=== PATIENT | male | born 1945 | race Caucasian/White ===

== ENCOUNTER 2022-06-24 11:35 | Observation (INO) | payer OTHER ==
[~2022-06-24] VITALS: Ht 170.2 cm; Wt 97.1 kg
[~2022-06-24 11:35] MED LIST: ACEB200; ALLO100; ALLO300 PO; AMIT25 PO; AMITRIPTYLLINE; ASPI81CH PO; ATOR20 PO; BP MED; CLOP75 PO; CYCL10 PO; DILT240 PO; ESCI10 PO; FISH OIL + D31 EACH PO; FISH1000 PO; FURO40 PO; GINKGO BILOBA120 MG PO; GINKO BILOBA; HCTZ/LISINOPRIL; Hair, Skin & N1 EACH PO; IBUP400 PO; ISOD40ER PO; Isosorbide Mono60 MG PO; LISHYD2012 PO; METF500 PO; METF500C PO; METO50 PO; METO50ER PO; MIRT15 PO; MULVITMINE PO; NAPR220 PO; PANT20; PANT40 PO; POTA20PAC PO; Prinivil10 MG PO; ROSU10TA PO; SERT25 PO; TAMS.4ER PO; THERA-D2000 UNIT PO; TRAM50 PO; Vitamin B Comple1 EA PO; ZESTORETIC 20-1 EAC1 PO; ZESTRIL40 M1 PO
[2022-06-24] MEDS ORDERED: OZEMPIC0.25 MG/0. SQ (12:25)
[2022-06-24] MEDS ORDERED: NITROGLYCERIN0.4 M1 SL (12:25)
--- NOTE | 2022-06-25 04:05 | NUR ---
PATIENT ARRIVED FROM ED AROUND 2100. ADMITTED WITH TIA AND PERSISTENT HEADACHES. PATIENT IS UNABLE TO HAVE MRI PERFORMED DUE TO IMPLANTED NEUROSTIMULATOR. CT SCAN SHOWED OCCLUSION OF RIGHT INTRACRANIAL ARTERY SEGMENT. SUBSEQUENT CT SCAN SCHEDULED FOR 2 PM THIS AFTERNOON. PATIENT ASYMPTOMATIC UPON ARRIVING IN ROOM AND HAS REMAINED ASYMPTOMATIC THROUGHOUT SHIFT. INDEPENDENT IN ROOM. AOX4. CALLS APPROPRIATELY. IV RIGHT AC SALINE LOCKED. ON ROOM AIR. TELEMETRY IN PLACE. PATIENT HAS NO COMPLAINTS AND HAS SLEPT WELL THROUGH MOST OF SHIFT. CALL LIGHT LEFT WITHIN REACH.
[2022-06-25 07:48] LABS: CHOL/HDL RATIO 2.7; Cholesterol 130 mg/dL (50-200); HDL Cholesterol 48 mg/dL (>39); LDL/HDL RATIO 1.1; Low Density Lipoprotein Chol 53 mg/dL (0-110); Triglycerides 145 mg/dL (30-160); Very Low Density Lipoprot Chol 29 mg/dL (6-32)
--- NOTE | 2022-06-25 11:09 | NUR ---
Echocardiogram completed.
--- NOTE | 2022-06-25 15:45 | NUR ---
THIS RICE DRYER MECHANIC AGREES WITH DIONISIO VANCE'S NOTES AND ASSESSMENTS.
--- NOTE | 2022-06-25 15:48 | NUR ---
PT AOX4 AND INDEPENDENT DENIED ANY KIND OF PAIN. PT DISCHARGED AT 1436 WITH ALL PAPERWORK REVIEWED AND EDUCATIONAL MATERIAL SENT WITH PT. NO DISTRESS NOTED AND ALL PERSONAL BELONGINGS COLLECTED AND WITH PT. PT ESCORTED OUT VIA WHEELCHAIR TO N ENTRANCE. NO DISTRESS NOTED.
== END 2022-06-25 14:27 | disposition home or self-care (01) ==
LOC: ER 11:35 → MEDS 11:36 → ER 20:54 → MEDS 06-25 14:27
PROVIDERS: ADMIT Internal Medicine
DX: G45.9 Transient cerebral ischemic attack, unspecified (principal); I10 Essential (primary) hypertension; E11.9 Type 2 diabetes mellitus without complications; I25.10 Atherosclerotic heart disease of native coronary artery without angina pectoris; Z66 Do not resuscitate; I66.22 Occlusion and stenosis of left posterior cerebral artery; Z88.0 Allergy status to penicillin; Z88.8 Allergy status to other drugs, medicaments and biological substances; Z87.891 Personal history of nicotine dependence
CPT/HCPCS: 36415; 70496; 80061; 82947; 85651; 86141; 93306; 96365-59; 96366-59; 96375-59; 99285-25; A9270; G0378; J1200; J1885; J2765; J3475; Q9967

== ENCOUNTER 2022-10-28 13:07 | Observation (INO) | payer OTHER ==
[~2022-10-28] VITALS: Ht 170.2 cm; Wt 96.3 kg
[~2022-10-28 13:07] MED LIST changes: +NITROGLYCERIN0.4 M1 SL; +OZEMPIC0.25 MG/0. SQ; +POTA10T PO; -POTA20PAC PO
[2022-10-28 13:40] LABS: BASOPHILS ABSOLUTE AUTO 0.02 K/mm3 (0.00-0.23); BASOPHILS PERCENT AUTO 0 % (0-2); EOSINOPHILS PERCENT AUTO 0 % (0-6); Hematocrit 43.1 % (37.0-53.0); Hemoglobin 15.2 g/dL (13.5-17.5); IMMATURE GRAN ABSOLUTE AUTO 0.04 K/mm3 (0.00-0.10); IMMATURE GRAN PERCENT AUTO 0 % (0-1); LYMPHOCYTES ABSOLUTE AUTO 2.17 K/mm3 (0.84-5.20); LYMPHOCYTES PERCENT AUTO 24 % (21-46); MONOCYTES ABSOLUTE AUTO 0.88 K/mm3 (0.16-1.47); MONOCYTES PERCENT AUTO 10 % (4-13); Mean Corpuscular HGB 34.5 pg (26.0-34.0); Mean Corpuscular HGB Conc 35.3 g/dL (31.5-36.5); Mean Corpuscular Volume 98 fL (80-100); Mean Platelet Volume 9.9 fL (9.1-12.4); NEUTROPHILS ABSOLUTE AUTO 6.04 K/mm3 (1.96-9.15); NEUTROPHILS PERCENT AUTO 66 % (41-73); Platelet Count 210 K/mm3 (150-400); RDW Coefficient Variation 13.4 % (11.7-14.2); RDW Standard Deviation 47.7 fL (35.1-46.3); Red Blood Cell Count 4.41 M/mm3 (4.30-5.90); White Blood Cell Count 9.15 K/mm3 (4.00-11.30)
[2022-10-28 13:59] LABS: Albumin, Blood 3.7 g/dL (3.4-5.0); Albumin/Globulin Ratio 1.2 (0.8-1.8); Bilirubin, Total 0.5 mg/dL (0.1-1.0); Bun/Creatinine Ratio 25.7 (12.0-20.0); Creatinine, Blood 1.05 mg/dL (0.60-1.20); Potassium, Blood 5.4 mmol/L (3.5-5.5); Total Protein, Blood 6.7 g/dL (6.4-8.2)
[2022-10-28] MEDS ORDERED: METF500 PO (20:18)
[2022-10-28 21:13] VITALS: BP 185/73
--- NOTE | 2022-10-28 22:48 | NUR ---
PATIENT IS A NEW ADMIT FROM THE ED. AXOX 4 AND SELF TRANSFER FROM [facility] TO BED. USES A CANE AT HOME AND BROUGHT HIS IN. DENIES CHEST PAIN, SOB, AND N/V. ON ROOM AIR. TELEMETRY PLACED AND TECH REPORTS NSR 75. REPORTS HE LIVES BY HIMSELF. ORIENTED TO ROOM AND CALL LIGHT SYSTEM. WANTED TO WATCH TV AFTER ASSESSMENT. CALL LIGHT IN REACH. TM.
--- NOTE | 2022-10-29 04:29 | NUR ---
SHIFT SUMMARY PATIENT HAD NO ACUTE CHANGES. AXOX 4 AND ONE ASSIST TO BR USING HIS CANE. DENIES CHEST PAIN, SOB, AND N/V. PIV REMAINS INTACT. TELE MONITOR NSR 75. HYPERTENSIVE ON ADMIT BUT NOT IN ED. POSSIBLE STRESS TEST TODAY AND NPO FOUR HOUR PRIOR TO PROCEDURE. TROPONINS WNL. REPORTS LIVES BY HIMSELF. COOPERATIVE WITH CARE. CALL LIGHT IN REACH. BED IN LOWEST POSITION. WILL CONTINUE TO MONITOR UNTIL DAY SHIFT NURSE ASSUMES CARE.
[2022-10-29 04:52] VITALS: BP 150/78
[2022-10-29 07:17] VITALS: BP 144/64
[2022-10-29 15:47] VITALS: BP 129/63
--- NOTE | 2022-10-29 15:51 | NUR ---
SHIFT SUMMARY: PATIENT A&OX4. CALM, PLEASANT AND COOPERATIVE c CARE. USES CALL LIGHT APPROPRIATELY AND ABLE TO MAKE NEEDS KNOWN. PATIENT DENIES CP/PRESSURE, N/V AND SOB. ON TELE, SR HR 65 BPM c 1ST DEGREE BBB AND PAC'S PER RN INFUSION, DELMAR BERUMEN. PATIENT ON ADA DIET c BS ACHS. BS RANGES 123-128. PATIENT IS CONTINENCE OF URINE AND STOOL. AMBULATES TO BATHROOM INDEPENDENTLY USING CANE. PATIENT HAS BEEN AMBULATING IN HALLWAYS BACK AND FORTH T/O SHIFT. DENIES GENERALIZE PAIN. PATIENT HAD HIS 1ST PART OF STRESS TEST DONE TODAY. 2ND PART OF STRESS TEST SCHEDULED TOMORROW. NO CAFFIENE AFTER DINNER AND NPO AT [place]. ECHO WAS CANCELLED TODAY BY DR. PETERSON. VITAL SIGNS REVIEWED. PIV TO LAC SALINE LOCKED. CALL LIGHT IN REACH.
[2022-10-29 19:21] VITALS: BP 181/88
[2022-10-29 20:27] VITALS: BP 177/92
[2022-10-30 04:18] VITALS: BP 155/70
[2022-10-30 07:31] VITALS: BP 165/58
[2022-10-30 15:34] VITALS: BP 142/67
--- NOTE | 2022-10-30 17:42 | NUR ---
SHIFT SUMMARY: NO NEW ACUTE CHANGES IN PATIENT CONDITION THIS SHIFT. PATIENT A&OX4. CALM, PLEASANT AND COOPERATIVE c CARE. USES CALL LIGHT APPROPRIATELY AND ABLE TO MAKE NEEDS KNOWN. PATIENT HAD HIS 2ND PART OF STRESS TEST DONE TODAY. SASH ASSEMBLER SAW PATIENT FOR CONSULT TODAY. PLAN TO HAVE PATIENT NPO AT [place] FOR POSSIBLE ANGIOGRAM TOMORROW 10/31/21. PATIENT DENIES CP/PRESSURE, N/V AND SOB. ON TELE, SB HR IN THE HIGH 50'S BPM c 1ST DEGREE HB AND BBB, PER CAFETERIA COUNTER ATTENDANT DELMAR BERUMEN. PATIENT RECIEVED SCHEDULED MEDS PER EMAR. BS RANGES 108-134 THIS SHIFT. VITAL SIGNS REVIEWED. CALL LIGHT IN REACH.
[2022-10-30 19:20] VITALS: BP 151/77
[2022-10-31] VITALS (7 sets, daily range): BP systolic 117–189; BP diastolic 68–80
--- NOTE | 2022-10-31 03:30 | NUR ---
SHIFT SUMMARY NOC PT A/O X 4. PLEASANT AND COOPERATIVE WITH CARE. PT HAD GUITAR TEACHER CONSULT YESTERDAY AND IS NPO AFTER MIDNIGHT FOR POSSIBLE ANGIOGRAM FOR 10/31/22. PT IS ON TELE RUNNING SINUS RHYTHM HR 72 BPM. PT IS CURRENTLY RESTING WITH BED IN LOWEST POSITION, AND CALL LIGHT WITHIN REACH.
--- NOTE | 2022-10-31 07:56 | NUR ---
NOTES: CALLED DR. PETERSON TO CLARIFY PATIENT SCHEDULED MEDS LOVENOX AND PLAVIX IF THIS RN CAN HOLD SINCE PATIENT POSSIBLE TO HAVE ANGIOGRAM TODAY. RECEIVED ORDER FROM DR. PETERSON TO GIVE PLAVIX AND HOLD LOVENOX.
--- NOTE | 2022-10-31 09:22 | NUR ---
PATIENT REPORTS SLIGHT PRESSURE TO CHEST AND SOB WHEN HE FIRST WOKE UP THIS MORNING AND PER PATIENT WENT AWAY. PATIENT DENIES CP/PRESSURE, N/V AND SOB AT THIS TIME. PATIENT SITTING UP ON THE EOB COMFORTABLY. PATIENT DAUGHTER AT BEDSIDE REPORTS CONCERNED AND SHOWS FRUSTRATIONS REGARDING THE ANGIOGRAM. PER DAUGHTER THEY WOULD LIKE TO KNOW IF IT IS GOING TO HAPPENED TODAY. THIS RN REASSURED DAUGHTER AND PATIENT TO LET THEM KNOW SOON RN FIND OUT OF ANYTHING. DAUGHTER AND PATIENT STATED UNDERSTANDING. THIS RN CALLED DR. PETERSON REGARDING THIS ISSUES. PER DR. PETERSON HE DON'T KNOW THE SCHEDULED AND INFORMED THIS RN TO CALLED HEART CENTER. THIS RN SPOKE c ATHLETIC SHOE DESIGNER, ANA PINTO REGARDING FAMILY'S CONCERNED AND FRUSTARTIONS. PER ANA SHE WILL CALL THE HEART CENTER AND COORDINATE c NURSING MANAGER STUDY ISHAN JOHN REGARDING THIS ISSUE.
--- NOTE | 2022-10-31 11:15 | NUR ---
NOTE: DR. GOMEZ CARDILOGY IN PATIENT ROOM AT THIS TIME TALKING TO PATIENT AND FAMILY MEMBER REGARDING PLAN FOR ANGIOGRAM PROCEDURE.
--- NOTE | 2022-10-31 17:29 | NUR ---
SHIFT SUMMARY: PATIENT A&OX4. CALM, PLEASANT AND COOPEARTIVE c CARE. USES CALL LIGHT APPROPRIATELY AND ABLE TO MAKE NEEDS KNOWN. AT AROUND 1617 PATIENT REPORTS "CHEST PRESSURE AND NOT PAIN". VITAL SIGNS TAKEN; RA 175/80 c HR OF 53 BPM, LA 189/78 c HR OF 55 BPM. THIS RN CALLED OPEN HEARTH FURNACE OPERATOR HELPER TO INQUIRE IF THEIR IS ANY CHANGES c PATIENT RHYTHM. PER OPEN HEARTH FURNACE OPERATOR HELPER KLARISSA, NO CHANGES IT'S BEEN SR HR RANGES 50'S-60'S c BBB AND PAC THIS SHIFT. CALLED DR. PETERSON TO REPORT PATIENT ISSUE. RECEIVED ORDER FROM DR. PETERSON TO GIVE NITRO PASTE Q4 FOR CP. PATIENT IS RESTING IN BED T/O SHIFT. IV TO LAC INFUSING NS 125 MLS/HR. PER CARDIOLOGY ORDER TO HAVE PATIENT NPO AT 0300 11/01/22 EXCEPT MEDS AND ICE CHIPS FOR POSSIBLE ANGIOGRAM TOMORRROW. CALL LIGHT IN REACH.
--- NOTE | 2022-10-31 18:43 | NUR ---
NOTES: PATIENT REPEAT VITAL SIGNS AFTER NITRO PASTE GIVEN. BP 159/68 c HR OF 55 BPM. PATIENT REPORTS FEELING BETTER. WILL CONTINUE TO MONITOR PATIENT. CALL LIGHT IN REACH.
[2022-11-01] VITALS (12 sets, daily range): BP systolic 96–151; BP diastolic 57–110
--- NOTE | 2022-11-01 03:29 | NUR ---
SHIFT SUMMARY NOC PT A/O X 4. PLEASANT AND COOPERATIVE WITH CARE. PT HAD NO C/O CP/DISCOMFORT DURING SHIFT. ACCESS DATABASE DEVELOPER DR. GOMEZ CONSULTED WITH PT ABOUT ANGIOGRAM PROCEDURE @ 0700 ON 11/01/22. PT AGREED TO LIFESAVING MEASURES BEING PERFORMED DURING PROCEDURE, BUT STILL REMAINS DNR OTHERWISE. PT IS NPO @ 0000 AND HAS NS INFUSING @ 125 MLS/HR. SECOND IV ACCESS SITE WAS ESTABLISHED IN R WRIST BY CLOCK REPAIR TECHNICIAN WITH ULTRASOUND. IV ACCESS IN LAC STILL PATENT AND FLUSHES BUT PT WOULD NOT KEEP ARM STRAIGHT FOR INFUSION AND DISTAL OCCLUSION ERROR PERSISTED, SO SECONDARY SITE WAS ESTABLISHED. PT NOTIFED DAUGHTER OF TIME OF PROCEDURE IN MORNING. PT ON TELE RUNNIN NSR @ 73 BPM. PT IS CURRENTLY RESTING WITH BED IN LOWEST POSITION, AND CALL LIGHT WITHIN REACH.
[2022-11-01 05:06] LABS: BASOPHILS ABSOLUTE AUTO 0.02 K/mm3 (0.00-0.23); BASOPHILS PERCENT AUTO 0 % (0-2); EOSINOPHILS ABSOLUTE AUTO 0.06 K/mm3 (0.00-0.68); EOSINOPHILS PERCENT AUTO 1 % (0-6); Hematocrit 42.8 % (37.0-53.0); IMMATURE GRAN ABSOLUTE AUTO 0.03 K/mm3 (0.00-0.10); IMMATURE GRAN PERCENT AUTO 0 % (0-1); LYMPHOCYTES ABSOLUTE AUTO 2.13 K/mm3 (0.84-5.20); LYMPHOCYTES PERCENT AUTO 28 % (21-46); MONOCYTES ABSOLUTE AUTO 0.95 K/mm3 (0.16-1.47); MONOCYTES PERCENT AUTO 13 % (4-13); Mean Corpuscular Volume 97 fL (80-100); Mean Platelet Volume 9.6 fL (9.1-12.4); NEUTROPHILS ABSOLUTE AUTO 4.41 K/mm3 (1.96-9.15); NEUTROPHILS PERCENT AUTO 58 % (41-73); Platelet Count 143 K/mm3 (150-400); RDW Coefficient Variation 13.1 % (11.7-14.2); RDW Standard Deviation 46.2 fL (35.1-46.3); Red Blood Cell Count 4.41 M/mm3 (4.30-5.90)
[2022-11-01 05:27] LABS: Bun/Creatinine Ratio 23.4 (12.0-20.0); Calcium, Blood 8.4 mg/dL (8.5-10.1); Creatinine, Blood 0.9 mg/dL (0.60-1.20)
--- NOTE | 2022-11-01 09:30 | NUR ---
ARRIVAL TO PCU 05- Patient came from 343 to PCU 05 post angio. Patient is awake alert and oriented x4. He denies pain at this time, he has nitro paste to his left chest from last HS, this is removed at this time. HRR. LS CTA, Biox high 90s on RA. BT+. PPP. Patient has right groin site with TEG CHG, scant oozing present, per Manjit RN they attempted to access the right groin but there was too much plaque thus they had to access the left wrist. Patient has left radial site with TR Band in place 14cc of air in the band, fingers dusky cap refill is 4 seconds. Pt denies N/T, pulse is strong, pleth good. Daughters at bedside. VSS, call light in reach. Patient CBG 119, breakfast given. Patient denies other needs at this time.
--- NOTE | 2022-11-01 11:35 | NUR ---
Update: Patients HOB now up to 60 degrees, TR band almost fully deflated, site has been great with no oozing, it is soft and non-tender. Right groin site with a small amount of oozing, soft and non-tender. VSS. AM meds given.
--- NOTE | 2022-11-01 16:30 | NUR ---
UPDATE: Dr. Wooten came by to see the patient, he would like to send the patient home. Discharge instructions are complete. Dr. De Santiago came by to see the patient, his recommendation is for the patient to stay the night and complete the CTA in the am and then make a plan for treatment. Daughter and patient at the bedside, updated on cardiology recommendations. Patient is agreeable to stay. VSS. He denies other needs at this time. Call light in reach.
--- NOTE | 2022-11-01 17:41 | NUR ---
Summary: Patient arrived down from [facility] from the heart [facility] to PCU 05. He had an angiogram performed with no interventions. He has been alert and oriented x4. He has not had any C/O pain for my shift. HRR, SR with a BBB in the 50s-60s. LS CTA, Biox has been high 90s on RA. BT+. He has cath sites in his right groin, which was a needle stick only-this has a dime size piece of oozing but has been soft and non-tender. Left radial site initially had a TR band with 14 cc air,recovered nicely, no oozing or bruising noted. Site is soft and non-tender. VSS. PPP. Plan is for the patient to have chest CTA in the AM and then establish plan with cardiology.
--- NOTE | 2022-11-01 22:03 | NUR ---
ASSUMPTION OF CARE THIS RN ASSUMED CARE OF PT AT 1900, REPORT FROM ENRIQUETA VANCE. PT AWAKE IN ROOM, PLEASANT UPON INTERACTION. PT A&O X4. COOPERATIVE WITH CARE. VSS. LUNGS SOUNDS CLEAR. PT DENIES CP OR PRESSURE, REPORTS MILD SOB WITH EXERTION "BUT IS NOT NEW". R GROIN SITE WNL, NO OOZING, EXCEPT SMALL, DIME SIZED OOZE THAT IS UNCHANGED PER DAYSHIFT. NO HEMATOMA, BRUISING NOTED AROUND SITE. PT DENIES PAIN. DRESSING INTACT. L RADIAL SITE WNL; NO OOZING, HEMATOMA, DISCOLORATION. PT DENIES NUMBNESS, TINGLING OR PAIN IN THE EXTREMITY, CAP REFILL WNL. SITE FULLY RECOVERED AND TEGADERM DRESSING IN PLACE. ARMBOARD IN PLACE AND PT REMINDED TO LIMIT USE OF THAT EXTREMITY. PT DENIES ANY NEEDS OR CONCERNS AT THIS TIME. PT INDEPENDENT IN ROOM. CALL LIGHT IN REACH
[2022-11-02] VITALS (7 sets, daily range): BP systolic 129–159; BP diastolic 56–84
--- NOTE | 2022-11-02 06:08 | NUR ---
SHIFT SUMMARY PT REMAINS A&O X4. VSS THROUGHOUT SHIFT. PT DENIES CP OR PRESSURE DURING SHIFT. STILL REPORTING SOB W/EXERTION. PT WAS ABLE TO REST WELL THROUGHOUT THE SHIFT. NO ACUTE CHANGES DURING SHIFT. L RADIAL SITE REMAINS UNCHANGED AND WNL. R GROIN SITE ALSO REMAINS UNCHANGED AND WNL. PT INDENPENDENT IN ROOM. PT AMBULATED IN THE HALLS SOME LAST NIGHT AND TOLERATED AMBULATION WELL. WILL UPDATE ONCOMING RN. CALL LIGHT IN REACH.
--- NOTE | 2022-11-02 10:39 | NUR ---
AM NOTE: PATIENT ALERT AND ORIENTED X4. HARD OF HEARING. UP TO BATHROOM WITH SBA. DENIES NUMBNESS/TINGLING. PERRLA. ON ROOM AIR SATING 100%. LUNGS SOUNDING CLEAR AND DIM IN BASES. SOB ON EXERCTION. TELE SHOWING SINUS RHYTHM WITH HR 60-70'S. BP STABLE. DENIES CHEST PAIN/PRESSURE/PALPITATIONS. CTA DONE THIS MORNING, RESULTS PENDING. LEFT RADIAL SITE WNL, RIGHT GROIN SITE WITH SMALL AMOUNT OF DRAINAGE THAT HAS REMAINED UNCHANGED. NO SIGNS OF ACTIVE BLEEDING. SMALL AMOUNT OF BRUISING SURROUNDING RIGHT GROIN SITE. DENIES ABDOMINAL PAIN/NAUSEA. EATING WNL. ACHS BLOOD SUGARS. CALL LIGHT IN REACH. PATIENT LAYING IN BED WATCHING TV AT THIS TIME.
--- NOTE | 2022-11-02 15:35 | NUR ---
DAUGHTER SHARRI AT BEDSIDE THIS AFTERNOON AND PRESENT UPON DR. GOMEZ VISIT. PLAN FOR ANGIO TOMORROW LATE AFTERNOON. PATIENT UP WALKING AROUND UNIT A FEW TIMES THIS AFTERNOON WITH SBA. DENIES CHEST PAIN/PRESSURE. VITALS REMAIN STABLE. SOME SOB WITH EXERTION. MAINTAINS SATURATIONS WITH EXERCISE.
--- NOTE | 2022-11-02 17:34 | NUR ---
SHIFT SUMMARY: NO NEW CHANGES, SEE PREVIOUS NOTE. PATIENT NEURO REMAINS UNCHANGED. ON ROOM AIR, TELE CONTINUES TO SHOW SR. DENIES CHEST PAIN/PRESSURE THROUGHOUT SHIFT. ALL VITALS SIGNS WNL. DAUGHTER AND OTHER FAMILY AT BEDSIDE THIS SHIFT. PLAN FOR ANGIOGRAM TOMORROW MORNING. PATIENT OKAY TO HAVE CLEAR LIQUID BREAKFAST PER DR. GOMEZ SINCE ANGIO IS PLANNED FOR LATE AFTERNOON. PATIENT TO BE NPO AFTER CLEAR LIQUID BREAKFAST. GROIN SITE AND LEFT RADIAL S/P ANGIO REMAIN UNCHANGED. PATIENT UP WALKING AROUND ROOM AND UNIT WITH SBA. CALL LIGHT IN REACH. PATIENT LAYING IN BED AT THIS TIME POST DINNER.
[2022-11-03] VITALS (12 sets, daily range): BP systolic 107–180; BP diastolic 57–99
--- NOTE | 2022-11-03 05:48 | NUR ---
SHIFT SUMMARY PT IS A&OX4, IND IN THE ROOM, AND HAS AMBULATED A FEW TIMES AROUND THE UNIT. AT ABOUT 0300 THE PT WOKE UP W/ A SHARP STABBING PAIN BEHIND HIS LEFT EYE. AT THAT TIME THE PAIN WAS 10/10 AND BP ELEVATED TO 180 SYSTOLIC. WHEN ALL THE LIGHTS WERE TURNED OFF THE PAIN WENT TO A 7/10 AND HIS BP WAS IN THE 160 S SYSTOLIC. HE WAS MEDICATED W/ 650MG TYLENOL AND THE PAIN WENT DOWN TO 5/10 AFTER THIRTY MINUTES. BP WNL. THE PT WAS GIVEN A COOL WASH CLOTH THAT ALSO HELPED. HE WAS ABLE TO FALL BACK ASLEEP. HE HAS BEEN NPO SINCE 0000 FOR A REPEAT ANGIO. ON 11/01 HE HAD AN ANGIO AND BOTH THE R GROIN AND L WRIST WERE ACCESSED. SITES HAVE A CHG TEGADERM INTACT. IN HIS GROIN SITE THERE IS DRIED BLOOD, BUT NO SIGNS OF ANY NEW BLEEDING. NO ACUTE CHANGES OVER NIGHT. SEE NOTES FOR ANY UPDATES.
--- NOTE | 2022-11-03 19:30 | NUR ---
ANGIO / END OF SHIFT PT BROUGHT BACK TO RM @ APPROX 1845. L RADIAL ACCESS SITE WNL. TR BAND & ARM BOARD IN PLACE. PT A&O X4. VSS. SPO2 > 92% ON RA. MONITOR SHOWING SB-SR, 50s-60s. PT C/O HEADACHE INTERMITTENTLY THIS SHIFT. PT REPORT OF RELIEF OF HEADACHE W/ PRN MEDICATION & USE OF ICE PACK.
--- NOTE | 2022-11-04 02:31 | NUR ---
TR BAND RECOVERED W/O ANY ISSUES; SITE CLEANED W/ CHLORHEXIDINE; TEGADERM PLACED; ARM BORED ON. PT NEVER HAD ANY S/S OF BLEEDING, HEMATOMA, N/T, OR PAIN.
[2022-11-04 04:15] VITALS: BP 121/63
--- NOTE | 2022-11-04 04:43 | NUR ---
SHIFT SUMMARY PT IS A&OX4, CALLS APPROPRIATELY, AND IS IND. HE HAS GONE ON A FEW WALKS THIS SHIFT W/O ANY ISSUES. HE IS WANTING TO GO HOME TODAY. HE HAD ANOTHER ANGIO ON 11/03 AND THE SITE IS RECOVERED AND THE TEGADERM IS DRY AND INTACT. VS STABLE AND NO ACUTE EVENTS. SEE NOTES FOR ANY UPDATES.
[2022-11-04 08:25] VITALS: BP 123/53
--- NOTE | 2022-11-04 11:55 | NUR ---
DISCHARGE NOTE PT A&O X4. VSS. SPO2 >92%. PT DENIED ANY CP OR SOB. SINUS LISETTE RHYTHM 50'S-60'S. TELE D/C'D. PT PROVIDED WITH D/C PAPERWORK. IV D/C'D. PT WHEELED OUT IN WHEELCHAIR WITH PCT AT APPROX 1135.
== END 2022-11-04 11:35 | disposition home or self-care (01) ==
LOC: ER 13:07 → MEDS 13:08 → PCU 13:08 → MEDS 13:08 → ER 20:13 → MEDS 21:09 → ENPENDDIS 10-30 12:31 → PCU 11-01 07:13
PROVIDERS: Emergency Medicine; Internal Medicine Cardiovascular Disease; ADMIT Internal Medicine
DX: I25.119 Atherosclerotic heart disease of native coronary artery with unspecified angina pectoris (principal); T82.857A Stenosis of other cardiac prosthetic devices, implants and grafts, initial encounter; I25.82 Chronic total occlusion of coronary artery; Z95.5 Presence of coronary angioplasty implant and graft; E11.9 Type 2 diabetes mellitus without complications; E78.5 Hyperlipidemia, unspecified; G89.29 Other chronic pain; M54.9 Dorsalgia, unspecified; I11.0 Hypertensive heart disease with heart failure; I50.32 Chronic diastolic (congestive) heart failure; Z66 Do not resuscitate; E66.01 Morbid (severe) obesity due to excess calories; Z88.4 Allergy status to anesthetic agent; Z88.0 Allergy status to penicillin; Z88.8 Allergy status to other drugs, medicaments and biological substances; Z79.82 Long term (current) use of aspirin; Z79.4 Long term (current) use of insulin; Z79.02 Long term (current) use of antithrombotics/antiplatelets; Z79.899 Other long term (current) drug therapy
CPT/HCPCS: 36415; 75574; 76937; 78452; 80048; 80053; 82947; 83036; 84484; 85025; 85347; 93005; 93010; 93017; 93455; 93459; 93571; 94760; 94762; 96372; 99152; 99153; 99285-25; A9270; A9500; C1769; C1887; C1894; G0378; J0153; J0280; J1644; J1650; J1815; J2250; J2785; J3010; J7030; J7050; Q9967

== ENCOUNTER 2023-01-20 08:22 | Day surgery (SDC) | payer OTHER ==
[~2023-01-20] VITALS: Ht 170.2 cm; Wt 96.5 kg
--- NOTE | 2023-01-20 09:03 | NUR ---
MALIGNANT HYPERTHERMIA FOLLOWING CABG
--- NOTE | 2023-01-20 09:17 | NUR ---
01/20/23 0917 Aga Celis AT 0908 NARCISOET AT 0910
[2023-01-20 10:22] VITALS: BP 115/69
== END 2023-01-20 10:39 | disposition home or self-care (01) ==
LOC: ORSCSDS 08:22
PROVIDERS: Ophthalmology
PROC: 08RJ3JZ Replacement of Right Lens with Synthetic Substitute, Percutaneous Approach (ICD-10-PCS; principal; 2023-01-20 10:00)
DX: H25.13 Age-related nuclear cataract, bilateral (principal); H21.81 Floppy iris syndrome; I10 Essential (primary) hypertension; I25.10 Atherosclerotic heart disease of native coronary artery without angina pectoris; E78.5 Hyperlipidemia, unspecified; E11.9 Type 2 diabetes mellitus without complications; Z79.02 Long term (current) use of antithrombotics/antiplatelets; N40.0 Benign prostatic hyperplasia without lower urinary tract symptoms; G47.33 Obstructive sleep apnea (adult) (pediatric); Z79.899 Other long term (current) drug therapy; Z79.82 Long term (current) use of aspirin
CPT/HCPCS: 82947; J2250; J3010; J3301; J7040; V2632

== ENCOUNTER 2023-05-24 18:48 | Observation (INO) | payer OTHER ==
[~2023-05-24] VITALS: Ht 170.2 cm; Wt 96.0 kg
[~2023-05-24 18:48] MED LIST changes: +JARDIANCE10 MG PO
[2023-05-24 20:10] LABS: BASOPHILS ABSOLUTE AUTO 0.03 K/mm3 (0.00-0.23); BASOPHILS PERCENT AUTO 0 % (0-2); EOSINOPHILS ABSOLUTE AUTO 0.03 K/mm3 (0.00-0.68); EOSINOPHILS PERCENT AUTO 0 % (0-6); Hematocrit 44.9 % (37.0-53.0); Hemoglobin 15.4 g/dL (13.5-17.5); IMMATURE GRAN ABSOLUTE AUTO 0.04 K/mm3 (0.00-0.10); IMMATURE GRAN PERCENT AUTO 0 % (0-1); LYMPHOCYTES ABSOLUTE AUTO 2.54 K/mm3 (0.84-5.20); LYMPHOCYTES PERCENT AUTO 26 % (21-46); MONOCYTES ABSOLUTE AUTO 1.03 K/mm3 (0.16-1.47); MONOCYTES PERCENT AUTO 11 % (4-13); Mean Corpuscular HGB 33.8 pg (26.0-34.0); Mean Corpuscular HGB Conc 34.3 g/dL (31.5-36.5); Mean Corpuscular Volume 99 fL (80-100); Mean Platelet Volume 9.9 fL (9.1-12.4); NEUTROPHILS ABSOLUTE AUTO 5.98 K/mm3 (1.96-9.15); NEUTROPHILS PERCENT AUTO 62 % (41-73); Platelet Count 174 K/mm3 (150-400); RDW Coefficient Variation 13.8 % (11.7-14.2); RDW Standard Deviation 49.9 fL (35.1-46.3); Red Blood Cell Count 4.55 M/mm3 (4.30-5.90); White Blood Cell Count 9.65 K/mm3 (4.00-11.30)
[2023-05-24 20:31] LABS: Albumin, Blood 3.6 g/dL (3.4-5.0); Albumin/Globulin Ratio 1.1 (0.8-1.8); Bilirubin, Total 0.4 mg/dL (0.1-1.0); Bun/Creatinine Ratio 21.2 (12.0-20.0); Calcium, Blood 9.1 mg/dL (8.5-10.1); Creatinine, Blood 1.32 mg/dL (0.60-1.20); Globulin, Blood 3.3 g/dL (2.2-4.0); Potassium, Blood 4.8 mmol/L (3.5-5.5); Total Protein, Blood 6.9 g/dL (6.4-8.2)
[2023-05-24 23:31] LABS: C-Reactive Protein, High Sens. 2.79 mg/L (0.000-3.000)
[2023-05-25 04:00] VITALS: BP 162/86
[2023-05-25 06:41] LABS: International Normalized Ratio 1.03; Prothrombin Time Results 10.8 Sec (9.7-11.5)
--- NOTE | 2023-05-25 06:54 | NUR ---
PT AOX4. REPORTS VISION LOSS IN R EYE. NO OTHER NEURO DEFECITS. SR AND HYPERTENSIVE. ROOM AIR.
[2023-05-25 07:08] LABS: BASOPHILS ABSOLUTE AUTO 0.03 K/mm3 (0.00-0.23); BASOPHILS PERCENT AUTO 0 % (0-2); EOSINOPHILS ABSOLUTE AUTO 0.03 K/mm3 (0.00-0.68); EOSINOPHILS PERCENT AUTO 0 % (0-6); Hematocrit 41.7 % (37.0-53.0); Hemoglobin 14.5 g/dL (13.5-17.5); IMMATURE GRAN ABSOLUTE AUTO 0.05 K/mm3 (0.00-0.10); IMMATURE GRAN PERCENT AUTO 1 % (0-1); LYMPHOCYTES ABSOLUTE AUTO 2.23 K/mm3 (0.84-5.20); LYMPHOCYTES PERCENT AUTO 24 % (21-46); MONOCYTES ABSOLUTE AUTO 0.95 K/mm3 (0.16-1.47); MONOCYTES PERCENT AUTO 10 % (4-13); Mean Corpuscular HGB 34.1 pg (26.0-34.0); Mean Corpuscular HGB Conc 34.8 g/dL (31.5-36.5); Mean Corpuscular Volume 98 fL (80-100); Mean Platelet Volume 9.7 fL (9.1-12.4); NEUTROPHILS ABSOLUTE AUTO 6.01 K/mm3 (1.96-9.15); NEUTROPHILS PERCENT AUTO 65 % (41-73); Platelet Count 154 K/mm3 (150-400); RDW Coefficient Variation 13.5 % (11.7-14.2); Red Blood Cell Count 4.25 M/mm3 (4.30-5.90)
[2023-05-25 07:21] LABS: Albumin, Blood 3.2 g/dL (3.4-5.0); Albumin/Globulin Ratio 1.1 (0.8-1.8); Bilirubin, Total 0.4 mg/dL (0.1-1.0); Bun/Creatinine Ratio 23.2 (12.0-20.0); Calcium, Blood 8.8 mg/dL (8.5-10.1); Creatinine, Blood 1.12 mg/dL (0.60-1.20); Potassium, Blood 4.1 mmol/L (3.5-5.5); Total Protein, Blood 6.2 g/dL (6.4-8.2)
[2023-05-25 08:26] VITALS: BP 156/103
[2023-05-25] MEDS ORDERED: ATOR80 PO (15:39)
--- NOTE | 2023-05-25 17:30 | NUR ---
DISCHARGE UPDATE DISCHARGE PACKE GONE OVER WITH PT AND SON IN-LAW AT 1710. PT DISCHARGED AT 1720 VIA WHEELCHAIR. PT EDUCATED ON HIGH CHOLESTEROL AND PREVENTION. PT EDUCATED ON STROKE RISKS AND "BE FAST" STROKE METHOD, PT VERBALIZED UNDERSTANDING. PT ABLE TO DRESS HIMSELF AND TRANSFER TO AND FROM WHEEL CHAIR, TOLERATED WELL. PT PERSONAL BELONGINGS IN BAGS AND TRANSFERED WITH PT. DISCHARGE PACKET WITH PT AT TIME OF DISCHARGE. ZIO PATCH IN PLACE AND BOX WITH PT AT TIME OF DISCHARGE.
== END 2023-05-25 17:21 | disposition home or self-care (01) ==
LOC: ER 18:48 → PCU 18:49
PROVIDERS: Student in an Organized Health Care Education/Training Program; ADMIT Internal Medicine
DX: H34.11 Central retinal artery occlusion, right eye (principal); Z88.0 Allergy status to penicillin; Z91.041 Radiographic dye allergy status; I10 Essential (primary) hypertension; I25.10 Atherosclerotic heart disease of native coronary artery without angina pectoris; I25.2 Old myocardial infarction; Z95.1 Presence of aortocoronary bypass graft; Z95.5 Presence of coronary angioplasty implant and graft; E11.9 Type 2 diabetes mellitus without complications; Z87.891 Personal history of nicotine dependence; Z79.82 Long term (current) use of aspirin; Z79.02 Long term (current) use of antithrombotics/antiplatelets
CPT/HCPCS: 36415; 70450; 70498; 80053; 82947; 83880; 85025; 85610; 85651; 86141; 93005; 93010; 93246; 93308; 93321; 96372; 99285-25; A9270; G0378; J0360; J1650; J7030; Q9967

== ENCOUNTER → 2024-05-30 | Outpatient (CLI) | payer OTHER ==
[~2024-05-30] MED LIST changes: +ATOR80 PO
== END ==
LOC: LAB SHORT 10:04 → LAB 10:04
DX: E11.40 Type 2 diabetes mellitus with diabetic neuropathy, unspecified (principal)
CPT/HCPCS: 82043

== ENCOUNTER 2024-08-08 14:46 | Inpatient (IN) | payer OTHER ==
[~2024-08-08] VITALS: Ht 170.2 cm; Wt 93.8 kg
[2024-08-08 15:53] LABS: BASOPHILS ABSOLUTE AUTO 0.01 K/mm3 (0.00-0.23); BASOPHILS PERCENT AUTO 0 % (0-2); EOSINOPHILS ABSOLUTE AUTO 0.02 K/mm3 (0.00-0.68); EOSINOPHILS PERCENT AUTO 0 % (0-6); Hematocrit 26.7 % (37.0-53.0); Hemoglobin 8.6 g/dL (13.5-17.5); IMMATURE GRAN ABSOLUTE AUTO 0.03 K/mm3 (0.00-0.10); IMMATURE GRAN PERCENT AUTO 1 % (0-1); LYMPHOCYTES PERCENT AUTO 29 % (21-46); MONOCYTES ABSOLUTE AUTO 0.79 K/mm3 (0.16-1.47); MONOCYTES PERCENT AUTO 13 % (4-13); Mean Corpuscular HGB 28.8 pg (26.0-34.0); Mean Corpuscular HGB Conc 32.2 g/dL (31.5-36.5); Mean Corpuscular Volume 89 fL (80-100); Mean Platelet Volume 10.3 fL (9.1-12.4); NEUTROPHILS ABSOLUTE AUTO 3.67 K/mm3 (1.96-9.15); NEUTROPHILS PERCENT AUTO 58 % (41-73); Platelet Count 190 K/mm3 (150-400); RDW Coefficient Variation 14.3 % (11.7-14.2); RDW Standard Deviation 45.9 fL (35.1-46.3); Red Blood Cell Count 2.99 M/mm3 (4.30-5.90); White Blood Cell Count 6.32 K/mm3 (4.00-11.30)
[2024-08-08 16:31] LABS: Albumin, Blood 3.3 g/dL (3.4-5.0); Albumin/Globulin Ratio 1.2 (0.8-1.8); Bilirubin, Total 0.3 mg/dL (0.1-1.0); Bun/Creatinine Ratio 28.6 (12.0-20.0); Creatinine, Blood 1.19 mg/dL (0.60-1.20); Globulin, Blood 2.7 g/dL (2.2-4.0); Potassium, Blood 4.8 mmol/L (3.5-5.5)
[2024-08-08] MEDS ORDERED: Pantoprazole Sodium 40 MG Injection IV ONE ×2 (17:20→17:25)
[2024-08-08] MEDS ORDERED: NS 1,000 ML IV SCH ×2 (18:15)
[2024-08-08 18:20] LABS: International Normalized Ratio 1.01; Prothrombin Time Results 10.8 Sec (9.7-11.5)
[2024-08-08] MEDS ORDERED: FLU VACC TS2024-25(6MOS UP)/PF 45 MCG/0.5 ML SYRINGE IM SCH (18:45)
[2024-08-08] MEDS ORDERED: Ondansetron HCl 2 MG / ML 2ML Vial IV PRN (18:45)
[2024-08-08] MEDS ORDERED: ALLO100 PO ×2 (21:25)
[2024-08-08] MEDS ORDERED: DULO30 PO ×2 (21:27)
[2024-08-08] MEDS ORDERED: JARDIANCE10 MG PO ×2 (21:28)
[2024-08-08] MEDS ORDERED: FURO20 PO ×2 (21:29)
[2024-08-08] MEDS ORDERED: LISI20 PO ×2 (21:29)
[2024-08-08] MEDS ORDERED: METF500 PO ×2 (21:30)
[2024-08-08] MEDS ORDERED: PREG100 PO ×2 (21:31)
[2024-08-08 21:43] LABS: Hematocrit 27.8 % (37.0-53.0)
[2024-08-08 22:27] VITALS: BP 131/77
[2024-08-08] MEDS ORDERED: MULTI-VITAMIN1 EAC2 PO ×2 (23:09)
[2024-08-08] MEDS ORDERED: B COMPLEX FORM0.4 MG PO ×2 (23:10)
[2024-08-08] MEDS ORDERED: VITAMIN D310 MC4 PO ×2 (23:11)
[2024-08-08] MEDS ORDERED: KRILL OIL 1,001 EACH PO ×2 (23:12)
[2024-08-09] VITALS (9 sets, daily range): BP systolic 88–150; BP diastolic 47–80
[2024-08-09 05:50] LABS: Hematocrit 27.4 % (37.0-53.0); Hemoglobin 8.7 g/dL (13.5-17.5); Mean Corpuscular HGB 27.4 pg (26.0-34.0); Mean Corpuscular HGB Conc 31.8 g/dL (31.5-36.5); Mean Corpuscular Volume 86 fL (80-100); Platelet Count 173 K/mm3 (150-400); RDW Coefficient Variation 14.8 % (11.7-14.2); RDW Standard Deviation 47.4 fL (35.1-46.3); Red Blood Cell Count 3.17 M/mm3 (4.30-5.90); White Blood Cell Count 6.15 K/mm3 (4.00-11.30)
[2024-08-09] MEDS ORDERED: Pantoprazole Sodium 40 MG Injection IV SCH (06:00)
[2024-08-09 06:19] LABS: Bun/Creatinine Ratio 25.5 (12.0-20.0); Calcium, Blood 8.8 mg/dL (8.5-10.1); Creatinine, Blood 1.1 mg/dL (0.60-1.20); Potassium, Blood 4.2 mmol/L (3.5-5.5)
--- NOTE | 2024-08-09 06:45 | NUR ---
SHIFT SUMMARY PT ARRIVED AT 2215 WITH COMPLAINTS OF CHEST PAIN ON EXURSION. PT DENIES FURTHER PAIN/SOB AT THIS TIME. PT BROUGHT HOME CPAP MACHINE. RT ASSISTED WITH CPAP SETUP. PT SLEPT THROUGH THE REST OF THE SHIFT.
[2024-08-09] MEDS ORDERED: Tamsulosin HCl 0.4 MG Cap PO SCH (09:00)
[2024-08-09] MEDS ORDERED: Atorvastatin 40 MG Tab PO SCH (09:00)
[2024-08-09] MEDS ORDERED: Lactated Ringer's 1,000 ML IV SCH (16:50)
--- NOTE | 2024-08-09 16:53 | NUR ---
SHIFT SUMMARY PT IS A/OX4. PT NPO SINCE MIDNIGHT FOR ENDOSCOPY. PT TAKEN TO PROCEDURE APPROX. 1650 VIA WHEELCHAIR. PT ON RA DURING THE DAY, USING CPAP WHILE ASLEEP. CONTINUOUS PULSE OX IN USE. PT CONT OF BOWELS AND BLADDER, USING THE URINAL INDEPENDENTLY. PT'S SON AT BEDSIDE THIS AFTERNOON AND UPDATED ON PT'S PLAN OF CARE.
[2024-08-09] MEDS ORDERED: propofoL 40 ML IV ONE (18:13)
[2024-08-09] MEDS ORDERED: Phenylephrine HCl 10mg/ml 1 ml Vial ONE (18:43)
--- NOTE | 2024-08-09 18:45 | NUR ---
08/09/[address] REN; SEE ANESTHESIA RECORDS.
[2024-08-09] MEDS ORDERED: ChlordiazePOXIDE 25 MG Cap PO PRN (23:10)
[2024-08-09] MEDS ORDERED: LORazepam 2 MG/ML 1ML Injection IV PRN (23:15)
--- NOTE | 2024-08-10 01:00 | NUR ---
HOSPITALIST CONTACT PT HAD EGD TODAY W/O COMPLICATIONS. PT RETURNED TO ROOM AT APROX 1930. SOON AFTER THE PT'S SON, GREGORIA, CAME TO THE ROOM. GREGORIA ASKED ABOUT PROCEDURE AND DISCLOSED THAT THE PT UNDERREPORTS HIS DAILY DRINKING; PT WILL DRINK A BOX OF WINE EVERY DAY. 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 PT HAS EXPERIENCED WITHDRAW SYMPTOMS ON PREVIOUS HOSPITAL STAYS RELATED TO CARDIAC HISTORY. CALL TO HOSPITALIST, NOTIFIED OF INFORMATION REPORTED ABOVE. NEW ORDER FOR [facility] PROTOCOL TO ASSESS ALCOHOL WITHDRAWAL WITH ATIVAN AND LIBRIUM TO TX S/S OF WITHDRAWAL.
[2024-08-10 01:41] VITALS: BP 94/47
[2024-08-10 02:02] VITALS: BP 118/68
--- NOTE | 2024-08-10 02:42 | NUR ---
HOSPITALIST CONTACT PT C/O OF FEELING ANXIOUS. CIWA ASSESSMENT SCORE 6. PT STATES HE HAS A TIGHTENING SENSATION IN HIS CHEST. NO CHEST PAIN OR RADIATING PAIN. CALL TO HOSPITALIST. NEW ORDER FOR TELE MONITORING AND EKG NEEDED FOR CHEST PAIN. UPON RETURN TO PT'S ROOM, PT STATED THE TIGHTNESS FEELS IMPROVED. PT PLACED ON TELE; NORMAL SINUS IN THE 80'S. PT GIVEN 1MG OF ATIVAN FOR S/S OF WITHDRAWAL/ANXIETY.
[2024-08-10] MEDS ORDERED: LORazepam 2 MG/ML 1ML Injection IV PRN ×3 (04:05→07:45)
[2024-08-10 05:33] LABS: BASOPHILS ABSOLUTE AUTO 0.02 K/mm3 (0.00-0.23); BASOPHILS PERCENT AUTO 0 % (0-2); EOSINOPHILS ABSOLUTE AUTO 0.04 K/mm3 (0.00-0.68); EOSINOPHILS PERCENT AUTO 1 % (0-6); Hematocrit 28.1 % (37.0-53.0); Hemoglobin 8.8 g/dL (13.5-17.5); IMMATURE GRAN ABSOLUTE AUTO 0.01 K/mm3 (0.00-0.10); IMMATURE GRAN PERCENT AUTO 0 % (0-1); LYMPHOCYTES ABSOLUTE AUTO 1.59 K/mm3 (0.84-5.20); LYMPHOCYTES PERCENT AUTO 26 % (21-46); MONOCYTES ABSOLUTE AUTO 0.76 K/mm3 (0.16-1.47); MONOCYTES PERCENT AUTO 12 % (4-13); Mean Corpuscular HGB 27.5 pg (26.0-34.0); Mean Corpuscular HGB Conc 31.3 g/dL (31.5-36.5); Mean Corpuscular Volume 88 fL (80-100); Mean Platelet Volume 9.7 fL (9.1-12.4); NEUTROPHILS ABSOLUTE AUTO 3.75 K/mm3 (1.96-9.15); NEUTROPHILS PERCENT AUTO 61 % (41-73); Platelet Count 165 K/mm3 (150-400); RDW Coefficient Variation 14.6 % (11.7-14.2); RDW Standard Deviation 46.7 fL (35.1-46.3); White Blood Cell Count 6.17 K/mm3 (4.00-11.30)
[2024-08-10 05:45] VITALS: BP 96/75
[2024-08-10] MEDS ORDERED: Pantoprazole Sodium 40 MG Tab PO SCH (06:00)
[2024-08-10 06:06] LABS: Albumin, Blood 3.1 g/dL (3.4-5.0); Albumin/Globulin Ratio 1.3 (0.8-1.8); Bilirubin, Total 0.6 mg/dL (0.1-1.0); Bun/Creatinine Ratio 24.4 (12.0-20.0); Calcium, Blood 8.6 mg/dL (8.5-10.1); Creatinine, Blood 0.98 mg/dL (0.60-1.20); Globulin, Blood 2.4 g/dL (2.2-4.0); Total Protein, Blood 5.5 g/dL (6.4-8.2)
--- NOTE | 2024-08-10 06:46 | NUR ---
PRODUCTION SUPPLY EQUIPMENT TENDER SUMMARY PT IN EGD PROCEDURE AT START OF SHIFT. PT RETURNED TO ROOM AT APROXIMATELY 1930. INITIAED POST OP VITALS. PT A/OX4. ABLE TO MAKE NEEDS KNOWN. PT GIVEN SMALL SNACK. TOLERATED WELL WITH N&V. SEE PREVIOUS NURSE NOTE--FAMILY REPORTS PT DRINKS BOX OF WINE DAILY AND HAS HAD WITHDRAWAL SYMPTOMS DURING PREVIOUS HOPTIAL STAYS. NOTIFIED HOSPITALIST. CIWA PROTOCOL AND MEDS ORDERED. PT HAVING INCREASED ANXIETY, MILD TACTILE DISTURBANCES, SLIGHT AGITATION, AND MILDLY PERCEPTABLE MOIST SKIN. CHEST TIGHTNESS (SEE NOTE). PT GIVEN 1MG OF ATIVAN WITH NO EFFECT. PT S/S PERSISTED WITH INCREASED RESTLESSNESS/ANXIETY. PT ORIENTED AT THIS TIME. SECOND DOSE OF ATIVAN GIVEN.
[2024-08-10 07:37] VITALS: BP 103/62
[2024-08-10] MEDS ORDERED: ChlordiazePOXIDE 25 MG Cap PO PRN (07:45)
[2024-08-10] MEDS ORDERED: dexmedeTOMIDine 100 ML IV SCH (07:50)
[2024-08-10] MEDS ORDERED: Folic Acid 1 MG in NS 50 ML IV SCH (10:51)
[2024-08-10] MEDS ORDERED: Thiamine HCl 100 MG in NS 50 ML IV SCH (10:52)
--- NOTE | 2024-08-10 13:21 | NUR ---
PT TRANSFERED TO U 03. REPORT GIVEN TO SHAMAR HAWLEY RN. GREGORIA, SON, CALLED AND NOTIFIED OF THE PT'S TRANSFER.
[2024-08-10 13:33] VITALS: BP 113/55
[2024-08-10] MEDS ORDERED: Gabapentin 300 MG Cap PO SCH (14:00)
[2024-08-10] MEDS ORDERED: Artificial Tears Opth Oint 7 GM BOTHEYES PRN (14:45)
[2024-08-10] MEDS ORDERED: Artificial Tear Opth Oint 3.5 GM BOTHEYES PRN (15:00)
--- NOTE | 2024-08-10 16:44 | NUR ---
TRANSFER UPDATE REPORT RECIEVED FROM [facility] FLOOR RN AT 1300. PT ARRIVED TO PCU AT 1320 VIA HOSPITAL BED. PT CPAP AND OTHER PERSONAL BELONGINGS TRANSFERED WITH PT.
--- NOTE | 2024-08-10 17:04 | NUR ---
SHIFT SUMMARY PT ALERT AND ORIENTED X3, SOMETIMES FORGETS DATE. VERBALIZES NEEDS, BUT NEGLECTS TO USE CALL LIGHT AT TIMES, BED ALARM ON. PT ENDORSES 2/10 CHRONIC BACK PAIN. CIWA SCORES 2-8, MEDICATING PER EMAR. PT RESTING COMFORTABLY IN BED. ON RA AND SATTING ABOVE 90%. SINUS RHYTHM IN 100'S, PT DENIES CHEST PAIN/PRESSURE. AMBULATING INDEPENDENTLY IN ROOM. CONTINENT OF URINE AND STOOL. NO ACUTE EVENTS THIS SHIFT.
[2024-08-10 20:09] VITALS: BP 119/73
--- NOTE | 2024-08-10 21:51 | NUR ---
ASSUMPTION OF CARE UPON INITIAL ASSESSMENT, PATIENT APPEARS A BIT DROWSY. 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 VITALLY STABLE. CIWA OF 0. COOPERATIVE WITH CARES. BED ALARM IN USE.
[2024-08-11 00:03] VITALS: BP 121/48
[2024-08-11 03:41] VITALS: BP 123/74
[2024-08-11 04:58] LABS: BASOPHILS ABSOLUTE AUTO 0.01 K/mm3 (0.00-0.23); BASOPHILS PERCENT AUTO 0 % (0-2); EOSINOPHILS ABSOLUTE AUTO 0.03 K/mm3 (0.00-0.68); EOSINOPHILS PERCENT AUTO 1 % (0-6); Hematocrit 29.5 % (37.0-53.0); Hemoglobin 9.3 g/dL (13.5-17.5); IMMATURE GRAN ABSOLUTE AUTO 0.02 K/mm3 (0.00-0.10); IMMATURE GRAN PERCENT AUTO 0 % (0-1); LYMPHOCYTES ABSOLUTE AUTO 1.48 K/mm3 (0.84-5.20); LYMPHOCYTES PERCENT AUTO 26 % (21-46); MONOCYTES ABSOLUTE AUTO 0.81 K/mm3 (0.16-1.47); MONOCYTES PERCENT AUTO 14 % (4-13); Mean Corpuscular HGB 27.4 pg (26.0-34.0); Mean Corpuscular HGB Conc 31.5 g/dL (31.5-36.5); Mean Corpuscular Volume 87 fL (80-100); Mean Platelet Volume 10.2 fL (9.1-12.4); NEUTROPHILS ABSOLUTE AUTO 3.41 K/mm3 (1.96-9.15); NEUTROPHILS PERCENT AUTO 59 % (41-73); Platelet Count 168 K/mm3 (150-400); RDW Coefficient Variation 14.4 % (11.7-14.2); RDW Standard Deviation 45.8 fL (35.1-46.3); Red Blood Cell Count 3.39 M/mm3 (4.30-5.90); White Blood Cell Count 5.76 K/mm3 (4.00-11.30)
[2024-08-11 05:26] LABS: Albumin/Globulin Ratio 1.2 (0.8-1.8); Bilirubin, Total 0.5 mg/dL (0.1-1.0); Bun/Creatinine Ratio 12.9 (12.0-20.0); Calcium, Blood 8.6 mg/dL (8.5-10.1); Creatinine, Blood 1.01 mg/dL (0.60-1.20); Globulin, Blood 2.5 g/dL (2.2-4.0); Potassium, Blood 3.8 mmol/L (3.5-5.5); Total Protein, Blood 5.5 g/dL (6.4-8.2)
[2024-08-11 07:25] VITALS: BP 112/59
[2024-08-11] MEDS ORDERED: Aspirin 81 MG Chew PO SCH (09:00)
[2024-08-11] MEDS ORDERED: Clopidogrel Bisulfate 75 MG Tab PO SCH (09:00)
--- NOTE | 2024-08-11 09:36 | NUR ---
am note this rn assumed care at 0700. vital signs stable. tele sinus rhythm 80s. patient uses cpap at home when sleeping and used it here last night. patient is alert and oriented to person, place, self, year, and current sitation. patient got the month wrong stating july and when this rn asked if the patient was sure, patient stated it was "august". patient denies pain, chest pain/pressure or shortness of breath. patient ciwa this morning is 0. patient lung sounds clear. see shift assessment for further detials. md mas in the room, assessed patient, and discussed alcholol withdrawal signs and symptoms, and later effects of acholol use on neurological system and educated on quitting. patient verbalized understanding and stated " i have been cutting back". plan for patient to discharge this afternoon after patient works with physical therapy to ensure patient is stable and if physical therapy isnt able to this rn will assess patient stablity and gait and updated md mas. patient agrees to this plan.
[2024-08-11 12:06] VITALS: BP 118/58
[2024-08-11] MEDS ORDERED: PANT40 PO ×2 (12:39)
--- NOTE | 2024-08-11 14:25 | NUR ---
DISCHARGE this rn went over discharge education with the patient and patients sons, tennille. this rn went over new medication protonix and [facility]. this rn went over the importance of chewing or crushing baby aspirin to prevent ulcers, patient verbalized understanding. this rn went over importance of follow up appointments and patient verbalized understanding. this rn went over importance to quit alcholol and patient verbalized attempting to cut back. this rn expressed the importance of following exercises physical therapy gave him and to continue moving and strengthen of muslces. patient verbalized understanding. patient son at bedside for conversation and patient son verbalized understanding. patient left with all belongings and left in no distress.
== END 2024-08-11 13:25 | disposition home or self-care (01) | DRG 811 ==
LOC: ER 14:46 → MEDS 18:41 → PCU 08-10 13:29
PROVIDERS: Internal Medicine; Internal Medicine Gastroenterology; Nurse Practitioner Acute Care; Student in an Organized Health Care Education/Training Program; ADMIT Student in an Organized Health Care Education/Training Program
PROC: 30233N1 Transfusion of Nonautologous Red Blood Cells into Peripheral Vein, Percutaneous Approach (ICD-10-PCS; 2024-08-08)
PROC: 0DB78ZX Excision of Stomach, Pylorus, Via Natural or Artificial Opening Endoscopic, Diagnostic (ICD-10-PCS; 2024-08-09)
PROC: 0DB68ZX Excision of Stomach, Via Natural or Artificial Opening Endoscopic, Diagnostic (ICD-10-PCS; principal; 2024-08-09 22:00)
DX: D50.0 Iron deficiency anemia secondary to blood loss (chronic) (principal); K25.4 Chronic or unspecified gastric ulcer with hemorrhage; F10.239 Alcohol dependence with withdrawal, unspecified; I13.0 Hypertensive heart and chronic kidney disease with heart failure and stage 1 through stage 4 chronic kidney disease, or unspecified chronic kidney disease; I50.32 Chronic diastolic (congestive) heart failure; I42.2 Other hypertrophic cardiomyopathy; Z68.32 Body mass index [BMI] 32.0-32.9, adult; Z66 Do not resuscitate; I25.10 Atherosclerotic heart disease of native coronary artery without angina pectoris; E11.42 Type 2 diabetes mellitus with diabetic polyneuropathy; N18.31 Chronic kidney disease, stage 3a; E66.01 Morbid (severe) obesity due to excess calories; E11.22 Type 2 diabetes mellitus with diabetic chronic kidney disease; E78.2 Mixed hyperlipidemia; N40.0 Benign prostatic hyperplasia without lower urinary tract symptoms; M10.9 Gout, unspecified; F32.A Depression, unspecified; H91.93 Unspecified hearing loss, bilateral; Z87.891 Personal history of nicotine dependence; Z95.5 Presence of coronary angioplasty implant and graft; Z95.1 Presence of aortocoronary bypass graft; Z79.82 Long term (current) use of aspirin; Z79.02 Long term (current) use of antithrombotics/antiplatelets; Z79.84 Long term (current) use of oral hypoglycemic drugs; Z86.73 Personal history of transient ischemic attack (TIA), and cerebral infarction without residual deficits; Z88.0 Allergy status to penicillin; Z88.8 Allergy status to other drugs, medicaments and biological substances; I25.2 Old myocardial infarction
CPT/HCPCS: 36415; 36430; 71046; 74177; 80048; 80053; 82947; 83690; 83735; 84484; 85014; 85018; 85025; 85027; 85610; 86850; 86900; 86901; 86923; 93005; 93010; 94762; 96374-59; 97110; 97116; 97161; 99285-25; A9270; J2060; J2371; J2470; J2704; J3411; J7030; J7120; P9016; Q9967

== ENCOUNTER 2024-08-13 10:14 | Emergency (ER) | payer OTHER ==
[~2024-08-13] VITALS: Ht 170.2 cm; Wt 93.0 kg
[~2024-08-13 10:14] MED LIST changes: +ALLO100 PO; +B COMPLEX FORM0.4 MG PO; +DULO30 PO; +FURO20 PO; +KRILL OIL 1,001 EACH PO; +LISI20 PO; +MULTI-VITAMIN1 EAC2 PO; +PREG100 PO; +VITAMIN D310 MC4 PO
[2024-08-13 10:45] LABS: BASOPHILS ABSOLUTE AUTO 0.02 K/mm3 (0.00-0.23); BASOPHILS PERCENT AUTO 0 % (0-2); EOSINOPHILS ABSOLUTE AUTO 0.01 K/mm3 (0.00-0.68); EOSINOPHILS PERCENT AUTO 0 % (0-6); Hematocrit 29.7 % (37.0-53.0); Hemoglobin 9.4 g/dL (13.5-17.5); IMMATURE GRAN ABSOLUTE AUTO 0.03 K/mm3 (0.00-0.10); IMMATURE GRAN PERCENT AUTO 0 % (0-1); LYMPHOCYTES PERCENT AUTO 18 % (21-46); MONOCYTES ABSOLUTE AUTO 0.74 K/mm3 (0.16-1.47); MONOCYTES PERCENT AUTO 9 % (4-13); Mean Corpuscular HGB 27.8 pg (26.0-34.0); Mean Corpuscular HGB Conc 31.6 g/dL (31.5-36.5); Mean Corpuscular Volume 88 fL (80-100); Mean Platelet Volume 10.1 fL (9.1-12.4); NEUTROPHILS ABSOLUTE AUTO 6.02 K/mm3 (1.96-9.15); NEUTROPHILS PERCENT AUTO 72 % (41-73); Platelet Count 193 K/mm3 (150-400); RDW Coefficient Variation 14.4 % (11.7-14.2); RDW Standard Deviation 45.9 fL (35.1-46.3); Red Blood Cell Count 3.38 M/mm3 (4.30-5.90); White Blood Cell Count 8.32 K/mm3 (4.00-11.30)
[2024-08-13 11:13] LABS: Albumin, Blood 3.6 g/dL (3.4-5.0); Albumin/Globulin Ratio 1.2 (0.8-1.8); Bilirubin, Total 0.5 mg/dL (0.1-1.0); Bun/Creatinine Ratio 17.6 (12.0-20.0); Calcium, Blood 9.4 mg/dL (8.5-10.1); Creatinine, Blood 1.42 mg/dL (0.60-1.20); Globulin, Blood 2.9 g/dL (2.2-4.0); Potassium, Blood 4.9 mmol/L (3.5-5.5); Total Protein, Blood 6.5 g/dL (6.4-8.2)
[2024-08-13] MEDS ORDERED: NS 1,000 ML IV SCH (11:35)
[2024-08-13 12:33] VITALS: BP 105/55
== END 2024-08-13 12:38 | disposition home or self-care (01) ==
LOC: ER 10:14
PROVIDERS: Emergency Medicine
DX: I95.89 Other hypotension (principal); D64.9 Anemia, unspecified; E86.0 Dehydration; I10 Essential (primary) hypertension; E11.9 Type 2 diabetes mellitus without complications; I25.10 Atherosclerotic heart disease of native coronary artery without angina pectoris; I25.2 Old myocardial infarction; G47.33 Obstructive sleep apnea (adult) (pediatric); N40.0 Benign prostatic hyperplasia without lower urinary tract symptoms; Z86.73 Personal history of transient ischemic attack (TIA), and cerebral infarction without residual deficits; Z95.5 Presence of coronary angioplasty implant and graft; Z95.1 Presence of aortocoronary bypass graft; Z87.891 Personal history of nicotine dependence; Z88.4 Allergy status to anesthetic agent; Z88.0 Allergy status to penicillin; Z88.8 Allergy status to other drugs, medicaments and biological substances; Z91.041 Radiographic dye allergy status; Z79.82 Long term (current) use of aspirin; Z79.01 Long term (current) use of anticoagulants; Z79.85 Long-term (current) use of injectable non-insulin antidiabetic drugs; Z79.84 Long term (current) use of oral hypoglycemic drugs; Z79.899 Other long term (current) drug therapy
CPT/HCPCS: 80053; 85025; 93005; 93010; 96360; 99285-25; J7030

== ENCOUNTER 2024-08-16 14:36 | Inpatient (IN) | payer OTHER ==
[~2024-08-16] VITALS: Ht 170.2 cm; Wt 93.4 kg
[2024-08-16 15:29] LABS: BASOPHILS ABSOLUTE AUTO 0.02 K/mm3 (0.00-0.23); BASOPHILS PERCENT AUTO 0 % (0-2); EOSINOPHILS ABSOLUTE AUTO 0.02 K/mm3 (0.00-0.68); EOSINOPHILS PERCENT AUTO 0 % (0-6); Hematocrit 22.4 % (37.0-53.0); Hemoglobin 6.9 g/dL (13.5-17.5); IMMATURE GRAN ABSOLUTE AUTO 0.02 K/mm3 (0.00-0.10); IMMATURE GRAN PERCENT AUTO 0 % (0-1); LYMPHOCYTES PERCENT AUTO 24 % (21-46); MONOCYTES ABSOLUTE AUTO 0.73 K/mm3 (0.16-1.47); MONOCYTES PERCENT AUTO 12 % (4-13); Mean Corpuscular HGB 26.8 pg (26.0-34.0); Mean Corpuscular HGB Conc 30.8 g/dL (31.5-36.5); Mean Corpuscular Volume 87 fL (80-100); Mean Platelet Volume 10.6 fL (9.1-12.4); NEUTROPHILS ABSOLUTE AUTO 3.97 K/mm3 (1.96-9.15); NEUTROPHILS PERCENT AUTO 63 % (41-73); Platelet Count 169 K/mm3 (150-400); RDW Coefficient Variation 14.6 % (11.7-14.2); RDW Standard Deviation 46.3 fL (35.1-46.3); Red Blood Cell Count 2.57 M/mm3 (4.30-5.90); White Blood Cell Count 6.26 K/mm3 (4.00-11.30)
[2024-08-16 15:39] LABS: Albumin, Blood 3.2 g/dL (3.4-5.0); Albumin/Globulin Ratio 1.3 (0.8-1.8); Bilirubin, Total 0.5 mg/dL (0.1-1.0); Bun/Creatinine Ratio 41.7 (12.0-20.0); Calcium, Blood 8.7 mg/dL (8.5-10.1); Creatinine, Blood 1.15 mg/dL (0.60-1.20); Globulin, Blood 2.5 g/dL (2.2-4.0); Potassium, Blood 4.6 mmol/L (3.5-5.5); Total Protein, Blood 5.7 g/dL (6.4-8.2)
[2024-08-16] MEDS ORDERED: NS 500 ML IV SCH (15:45)
[2024-08-16] MEDS ORDERED: Pantoprazole Sodium 40 MG Injection IV ONE (15:50)
[2024-08-16] MEDS ORDERED: FLU VACC TS2024-25(6MOS UP)/PF 45 MCG/0.5 ML SYRINGE IM SCH (17:30)
[2024-08-16] MEDS ORDERED: NS 1,000 ML IV SCH (17:35)
[2024-08-16] MEDS ORDERED: Ondansetron HCl 2 MG / ML 2ML Vial IV PRN (17:35)
[2024-08-16 20:55] LABS: Hematocrit 24.5 % (37.0-53.0); Hemoglobin 7.9 g/dL (13.5-17.5)
[2024-08-16 23:55] VITALS: BP 129/64
[2024-08-17] VITALS (8 sets, daily range): BP systolic 108–132; BP diastolic 53–81
[2024-08-17 04:43] LABS: BASOPHILS ABSOLUTE AUTO 0.02 K/mm3 (0.00-0.23); BASOPHILS PERCENT AUTO 0 % (0-2); EOSINOPHILS ABSOLUTE AUTO 0.04 K/mm3 (0.00-0.68); EOSINOPHILS PERCENT AUTO 1 % (0-6); Hematocrit 22.5 % (37.0-53.0); Hemoglobin 7.2 g/dL (13.5-17.5); IMMATURE GRAN ABSOLUTE AUTO 0.03 K/mm3 (0.00-0.10); IMMATURE GRAN PERCENT AUTO 1 % (0-1); LYMPHOCYTES PERCENT AUTO 30 % (21-46); MONOCYTES ABSOLUTE AUTO 0.87 K/mm3 (0.16-1.47); MONOCYTES PERCENT AUTO 14 % (4-13); Mean Corpuscular HGB 27.7 pg (26.0-34.0); Mean Corpuscular Volume 87 fL (80-100); Mean Platelet Volume 10.3 fL (9.1-12.4); NEUTROPHILS ABSOLUTE AUTO 3.57 K/mm3 (1.96-9.15); NEUTROPHILS PERCENT AUTO 56 % (41-73); Platelet Count 152 K/mm3 (150-400); RDW Coefficient Variation 14.9 % (11.7-14.2); RDW Standard Deviation 46.9 fL (35.1-46.3); White Blood Cell Count 6.43 K/mm3 (4.00-11.30)
[2024-08-17 04:58] LABS: International Normalized Ratio 1.05; Prothrombin Time Results 11.2 Sec (9.7-11.5)
[2024-08-17 05:21] LABS: Albumin, Blood 2.8 g/dL (3.4-5.0); Albumin/Globulin Ratio 1.2 (0.8-1.8); Bilirubin, Total 0.5 mg/dL (0.1-1.0); Bun/Creatinine Ratio 37.3 (12.0-20.0); Creatinine, Blood 0.97 mg/dL (0.60-1.20); Globulin, Blood 2.4 g/dL (2.2-4.0); Magnesium, Blood 1.6 mg/dL (1.6-2.4); Total Protein, Blood 5.2 g/dL (6.4-8.2)
[2024-08-17] MEDS ORDERED: Pantoprazole Sodium 40 MG Tab PO SCH (06:00)
--- NOTE | 2024-08-17 06:36 | NUR ---
SHIFT SUMMARY PT USED HIS HOME CPAP WHILE SLEEPING,TOLERATED IT WELL.NO C/O PAIN/DISCOMFORT.PT AWAKE AT THIS TIME SITTING AT THE EDGE OF THE BED.DENIES PAIN,DENIES NEEDS.CALL LIGHT AND PT'S ITEMS WITHIN REACH.WILL REPORT TO DAYSHIFT NURSE.
[2024-08-17] MEDS ORDERED: Insulin Human Lispro 100 Units/ML 3ML Syringe SC SCH (07:30)
--- NOTE | 2024-08-17 07:45 | NUR ---
ASSUMED CARE OF PATIENT AT 0700. PT REPORTING 1-2/10 CONSTANT CHEST PAIN, VSS. NO CHANGES TO TELE, DR WILKINSON NOTIFIED, PLACED NEW ORDER FOR TROP AND H&H. PT ALERT, ORIENTED, [place]. RESTING IN BED, REPOSITIONS SELF SIDE TO SIDE, BOOSTED IN BED. PT DENIES OTHER PAIN, SOB, NAUSEA, AND DIZZINESS. PT REPORT CHRONIC NEUROPATHY TO BLE. TELE SINUS 80'S BBB, BP STABLE. SPO2 >90% ON RA, BREATHING EVEN AND UNLABORED. ABD MILD DISTENDED, SOFT, NONTENDER WITH +BT T/O. OTHE VSS. NO OTHER ACUTE CHANGES NOTED. WILL CONTINUE TO MONITOR.
[2024-08-17 08:22] LABS: Hematocrit 25.5 % (37.0-53.0); Hemoglobin 7.9 g/dL (13.5-17.5)
[2024-08-17] MEDS ORDERED: Mag Hydrox/Al Hydrox/Simeth 18 ML,Lidocaine 2% Viscous Soln 9 ML,Atropine/Scopalam/Hyos... PO ONE (08:55)
[2024-08-17] MEDS ORDERED: Atorvastatin 40 MG Tab PO SCH (09:00)
[2024-08-17] MEDS ORDERED: Aspirin 81 MG Chew PO SCH (09:00)
[2024-08-17] MEDS ORDERED: Aspirin 81 MG TabEC PO SCH (09:00)
[2024-08-17] MEDS ORDERED: Tamsulosin HCl 0.4 MG Cap PO SCH (09:00)
[2024-08-17] MEDS ORDERED: Clopidogrel Bisulfate 75 MG Tab PO SCH (09:00)
--- NOTE | 2024-08-17 09:00 | NUR ---
PATIENT CALLED REPORTING INCREASED CHEST PAIN, VITAL SIGNS REMAIN STABLE. NOTIFIED DR WILKINSON OF INCREASE CHEST PAIN, NEW ORDER FOR EKG AND GI COCKTAIL. DR WILKINSON TO ROOM, REVIEWED EKG. CODE STATUS CHANGE TO DNR PER PT AND FAMILY REQUEST, PURPLE ARM BAND PLACED. DR WILKINSON NOTIFIED OF CRITICAL LAB TROP, NO NEW ORDERS. WILL CONTINUE TO MONITOR.
[2024-08-17 16:11] LABS: Hematocrit 23.5 % (37.0-53.0); Hemoglobin 7.3 g/dL (13.5-17.5)
[2024-08-17] MEDS ORDERED: Mag Hydrox/AL Hydrox/Simeth 30 ML UDC PO PRN ×2 (16:50→19:10)
--- NOTE | 2024-08-17 17:23 | NUR ---
INITIAL PALLIATIVE CARE VISIT: MET WITH PT IN HIS ROOM. DAUGHTER IN LAW IS PRESENT. PT GOES BY "[employer]". HE IS A/O AND ABLE TO ANSWER QUESTIONS APPROPRIATELY. DISCUSSED CONCERNS OF GI BLEED AND WHAT PATIENT WANTED TO DO. PT STATES "I JUST WANT THIS TO BE ALL OVER." DAUGHTER IN LAW INTERVENED AND STATED "WELL THAT'S NOT WHAT IS GOING TO HAPPEN." DISCUSSED RISKS VS BENEFITS OF GETTING A COLONOSPOPY AND DEPENDING ON WHAT WAS FOUND WHAT THE NEXT STEPS WOULD BE FOR TREATMENT. WHILE I WAS HAVING DISCUSSION WITH PT/DIL DR. WILKINSON CAME IN AND UPDATED THEM ON THE ECHO RESULTS WHICH WAS ALSO REQUIRING FOLLOW-UP OUTPT WITH A CARISA PROCEDURE AND MAY RESULT IN CORRECTIVE SURGERY ON THE HEART VALVE. DR. WILKINSON DISCUSSED PROCEDURE IN DETAIL. THIS RN ADVISED DIL TO GO HOME AND TALK TO FAMILY ABOUT GOALS OF CARE AND OPTIONS OF TREATMENT VS HOSPICE. ADVISED A NURSE WOULD FOLLOW-UP THIS WEEKEND.
--- NOTE | 2024-08-17 17:54 | NUR ---
SHIFT SUMMARY PT HAS RELEIFE FROM CHEST PAIN WITH GI COCKTAIL, NEW ORDER THIS EVENING FOR MALOXX, THIS IS WHAT PATIENT USES AT HOME. UP WITH 1 PERSON ASSIST TO BATHROOM. PT CONTINUES TO REPORT INTERMITTENT CP, AWARE. PT HAD 1 DARK BROWN/BLACK STOOL WITH SMALL AMOUNT OF BRIGHT RED STREAK, AWARE. OTHER VSS. NO OTHER ACUTE CHANGES. WILL CONTINUE TO [facility]
[2024-08-17] MEDS ORDERED: Furosemide 10 MG / ML 2ML Vial IV ONE (18:30)
[2024-08-17] MEDS ORDERED: Mag Hydrox/Al Hydrox/Simeth 72 ML,Lidocaine 2% Viscous Soln 36 ML,Atropine/Scopalam/Hyo... PO PRN (19:20)
[2024-08-17] MEDS ORDERED: OxyCODONE HCL 5 MG TAB PO PRN (19:45)
[2024-08-17] MEDS ORDERED: Acetaminophen 325 MG TABLET PO PRN (19:45)
--- NOTE | 2024-08-17 20:30 | NUR ---
ASSUMPTION OF CARE ASSUMED PT'S CARE AT 1900,PT RESTING IN BED WATCHING TV.BEDSIDE REPORT COMPLETED,PLAN OF CARE REVIEWED WITH PT.PT DENIES PAIN,DENIES NEEDS.CALL LIGHT AND PT'S ITEMS WITHIN REACH.WILL CONTINUE TO MONITOR.
--- NOTE | 2024-08-17 20:53 | NUR ---
CARE NOTE AT 1929,PT ASSISTED TO THE BEDSIDE TO USE THE URINAL.PT COMPLAINED OF CHEST PAIN GOING ACROSS HIS CHEST,STATES THAT THE MOST PAIN IS ON THE RIGHT RIDE OF HIS CHEST.PT DENIES RADIATION OF PAIN TO HIS BACK OR JAWS,DESCRIBES PAIN CONSTANT THAT COMES AND GOES,DENIES PRESSURE TO HIS CHEST,DENIES SOB.PROVIDER NOTIFIED AT 1936,ORDERS PLACED FOR TYLENOL AND ROXICODONE PRN FOR PAIN.PT GIVEN TYLENOL.RESIDENT CAME TO THE BEDSIDE AT 2032 TO ASSESS PT.RESIDENT SAID TO CONTINUE MONITORING AND NOTIFY HIM IF PT'S CONDITION CHANGES.
--- NOTE | 2024-08-17 21:25 | NUR ---
ASSUMPTION OF CARE ASSUMED PT'S CARE AT 1900,BEDSIDE REPORT COMPLETED WITH [facility] NURSE.PT LETHARGIC,OPENS EYES TO VOICE.PLAN OF CARE REVIEWED.PT'S OXYGEN SATURATION 87% ON RA,PLACED ON 2L VIA NASAL CANNULA.RESPIRATORY THERAPIST CAME TO THE ROOM, EVALUATED PT AND OFFERED TO PLACE PT ON A BIPAP BUT PT REFUSED.RT INCREASED THE OXYGEN FLOW RATE TO 3L VIA NC.OXYGEN SATURATION 94%.VSS,PT DENIES PAIN,DENIES SOB,DENIES NEEDS.NEPHROSTOMY TUBE IN PLACE DRAINING MODERATE AMOUNT OF SEROSANGUINEOUS DRAINAGE.CALL LIGHT AND PTS ITEMS WITHIN REACH.WILL CONTINUE TO MONITOR.
[2024-08-17] MEDS ORDERED: Nitroglycerin 0.4 MG SUBL SL PRN (22:10)
[2024-08-17] MEDS ORDERED: NS 250 ML IV PRN (22:25)
[2024-08-17 22:52] LABS: Hematocrit 21.3 % (37.0-53.0); Hemoglobin 6.9 g/dL (13.5-17.5)
[2024-08-18] VITALS (9 sets, daily range): BP systolic 101–123; BP diastolic 56–90
[2024-08-18 03:25] LABS: BASOPHILS ABSOLUTE AUTO 0.02 K/mm3 (0.00-0.23); BASOPHILS PERCENT AUTO 0 % (0-2); EOSINOPHILS ABSOLUTE AUTO 0.02 K/mm3 (0.00-0.68); EOSINOPHILS PERCENT AUTO 0 % (0-6); Hematocrit 23.7 % (37.0-53.0); Hemoglobin 7.6 g/dL (13.5-17.5); IMMATURE GRAN ABSOLUTE AUTO 0.02 K/mm3 (0.00-0.10); IMMATURE GRAN PERCENT AUTO 0 % (0-1); LYMPHOCYTES ABSOLUTE AUTO 1.76 K/mm3 (0.84-5.20); LYMPHOCYTES PERCENT AUTO 29 % (21-46); MONOCYTES ABSOLUTE AUTO 0.93 K/mm3 (0.16-1.47); MONOCYTES PERCENT AUTO 15 % (4-13); Mean Corpuscular HGB 27.6 pg (26.0-34.0); Mean Corpuscular HGB Conc 32.1 g/dL (31.5-36.5); Mean Corpuscular Volume 86 fL (80-100); Mean Platelet Volume 10.3 fL (9.1-12.4); NEUTROPHILS ABSOLUTE AUTO 3.32 K/mm3 (1.96-9.15); NEUTROPHILS PERCENT AUTO 55 % (41-73); Platelet Count 141 K/mm3 (150-400); RDW Coefficient Variation 14.6 % (11.7-14.2); RDW Standard Deviation 45.6 fL (35.1-46.3); Red Blood Cell Count 2.75 M/mm3 (4.30-5.90); White Blood Cell Count 6.07 K/mm3 (4.00-11.30)
[2024-08-18 03:41] LABS: Bun/Creatinine Ratio 27.5 (12.0-20.0); Calcium, Blood 7.9 mg/dL (8.5-10.1); Creatinine, Blood 0.98 mg/dL (0.60-1.20); Potassium, Blood 3.5 mmol/L (3.5-5.5)
--- NOTE | 2024-08-18 06:14 | NUR ---
SHIFT SUMMARY PT HAS BEEN SLEEPING MOST OF THE NIGHT,WORE THE CPAP WHILE SLEEPING.RECEIVED I UNIT OF PRBC FOR HEMOGLOBIN OF 6.9.HEMOGLOBIN 7.6 WITH AM LABS.VSS.REPORTED CHEST PAIN AT THE BEGINNING OF THE SHIFT WHICH RESOLVED AFTER RECEIVING PRN TYLENOL PO (SEE CARE NOTE FOR DETAILS).PT AWAKE,DENIES CHEST PAIN,DENIES GENERALIZED PAIN,DENIES NEEDS AT THIS TIME.CALL LIGHT AND PT'S ITEMS WITHIN REACH
--- NOTE | 2024-08-18 08:09 | NUR ---
ASSUMED CARE OF PATIENT AT APPROX 0700. PT ALERT, ORIENTED; CALM AND COOPRATIVE WITH CARE. 1 PERSON ASSIST UP TO CHAIR AND BATHROOM. PT DENIES PAIN, CHEST PAIN/PRESSURE, SOB, NAUSEA, AND DIZZINESS AT THIS TIME. TELE SINUS 80'S, BP STABLE. SPO2 >90% ON RA, BREATHING EVEN AND UNLABORED AT REST, SOB WITH ACTIVITY. ABD DISTENDED, SOFT, NONTENDER, + BT T/O. PT RECEIVED A UNIT OF PRBC LAST NIGHT, DISCUSSED WITH DR WILKINSON, PLANS TO HOLD ASPIRIN AND PLAVIX THIS AM, GI DR THOMPSON CONSULTED, CALLED INTO ANSWERING SERVICE. OTHER VSS. WILL CONTINUE TO MONITOR.
[2024-08-18 08:21] LABS: Percent Saturation 5.2 % (20.0-50.0)
[2024-08-18] MEDS ORDERED: Furosemide 10 MG/ML 4ML Vial IV SCH (09:00)
[2024-08-18] MEDS ORDERED: DULoxetine HCL 30 MG Cap DR PO SCH (09:00)
[2024-08-18] MEDS ORDERED: Empagliflozin 10 MG TAB PO SCH (09:00)
[2024-08-18] MEDS ORDERED: Pregabalin 50 MG Capsule PO SCH (09:00)
[2024-08-18] MEDS ORDERED: Allopurinol 100 MG Tab PO SCH (09:00)
[2024-08-18] MEDS ORDERED: Iron Dextran 50 MG / ML 2ML Vial IV ONE (10:00)
[2024-08-18] MEDS ORDERED: Iron Dextran 975 MG in NS 250 ML IV ONE (11:00)
[2024-08-18 13:19] LABS: Hemoglobin 8.7 g/dL (13.5-17.5); Mean Corpuscular HGB Conc 32.2 g/dL (31.5-36.5); Mean Corpuscular Volume 87 fL (80-100); Mean Platelet Volume 10.5 fL (9.1-12.4); Platelet Count 166 K/mm3 (150-400); RDW Coefficient Variation 14.6 % (11.7-14.2); RDW Standard Deviation 46.2 fL (35.1-46.3); Red Blood Cell Count 3.11 M/mm3 (4.30-5.90); White Blood Cell Count 7.26 K/mm3 (4.00-11.30)
--- NOTE | 2024-08-18 16:54 | NUR ---
SHIFT SUMMARY NO CHEST PAIN T/O SHIFT. DR THOMPSON AT BEDSIDE THIS AM, PLANS FOR COLONOSCOPY 08/20, STARTING BOWEL PREP 08/19 EVENING IS STRESS TREST IS NEGATIVE. PLANS FOR NPO AFTER MIDNIGHT (WATER IS OK) FOR STRESS TEST TOMORROW. OTHER VSS. NO OTHER ACUTE CHANGES. WILL CONITNUE TO MONITOR.
[2024-08-18] MEDS ORDERED: Sodium, Potassium,Mag Sulfates 354 ML PO SCH (18:00)
--- NOTE | 2024-08-18 18:16 | NUR ---
SEVERAL ATTEMPTS TO MAKE CONTACT WITH PATIENT THIS SHIFT. DISCUSSED CASE WITH BEDSIDE RN. PC WILL CONTINUE TO FOLLOW
[2024-08-18 22:06] LABS: Hematocrit 25.5 % (37.0-53.0); Hemoglobin 8.3 g/dL (13.5-17.5); Mean Corpuscular HGB 27.9 pg (26.0-34.0); Mean Corpuscular HGB Conc 32.5 g/dL (31.5-36.5); Mean Corpuscular Volume 86 fL (80-100); Mean Platelet Volume 10.2 fL (9.1-12.4); NRBC ABSOLUTE 0.02 K/mm3 (0.00-0.02); NRBC Auto 0.3 /100 WBC (0.0-0.2); Platelet Count 170 K/mm3 (150-400); RDW Coefficient Variation 14.7 % (11.7-14.2); RDW Standard Deviation 45.2 fL (35.1-46.3); Red Blood Cell Count 2.97 M/mm3 (4.30-5.90); White Blood Cell Count 6.72 K/mm3 (4.00-11.30)
[2024-08-19] VITALS (7 sets, daily range): BP systolic 108–150; BP diastolic 46–91
[2024-08-19 04:35] LABS: BASOPHILS ABSOLUTE AUTO 0.01 K/mm3 (0.00-0.23); BASOPHILS PERCENT AUTO 0 % (0-2); EOSINOPHILS ABSOLUTE AUTO 0.04 K/mm3 (0.00-0.68); EOSINOPHILS PERCENT AUTO 1 % (0-6); Hematocrit 25.2 % (37.0-53.0); Hemoglobin 8.2 g/dL (13.5-17.5); IMMATURE GRAN ABSOLUTE AUTO 0.03 K/mm3 (0.00-0.10); IMMATURE GRAN PERCENT AUTO 1 % (0-1); LYMPHOCYTES ABSOLUTE AUTO 1.69 K/mm3 (0.84-5.20); LYMPHOCYTES PERCENT AUTO 28 % (21-46); MONOCYTES ABSOLUTE AUTO 0.91 K/mm3 (0.16-1.47); MONOCYTES PERCENT AUTO 15 % (4-13); Mean Corpuscular HGB 27.9 pg (26.0-34.0); Mean Corpuscular HGB Conc 32.5 g/dL (31.5-36.5); Mean Corpuscular Volume 86 fL (80-100); Mean Platelet Volume 10.5 fL (9.1-12.4); NEUTROPHILS ABSOLUTE AUTO 3.36 K/mm3 (1.96-9.15); NEUTROPHILS PERCENT AUTO 56 % (41-73); Platelet Count 164 K/mm3 (150-400); RDW Coefficient Variation 14.8 % (11.7-14.2); RDW Standard Deviation 46.3 fL (35.1-46.3); Red Blood Cell Count 2.94 M/mm3 (4.30-5.90); White Blood Cell Count 6.04 K/mm3 (4.00-11.30)
[2024-08-19 04:55] LABS: Bun/Creatinine Ratio 19.1 (12.0-20.0); Calcium, Blood 8.5 mg/dL (8.5-10.1); Creatinine, Blood 1.1 mg/dL (0.60-1.20); Potassium, Blood 3.5 mmol/L (3.5-5.5)
--- NOTE | 2024-08-19 05:13 | NUR ---
SHIFT SUMMARY PATIENT ALERT, ORIENTED x4. [place]. ABLE TO MAKE NEEDS KNOWN TO STAFF. BP STABLE. PATIENT ON RA WHILE AWAKE, CPAP WHILE SLEEPING, SPO2 >90%. CONDOM CATH IN PLACE DRAINING CLEAR/YELLOW URINE, ADEQUATE OUTPUT. PATIENT AMBULATING IN ROOM STANDBY ASSIST. PATIENT NPO SINCE 0000, AWAITING PROCEDURE THIS AM. NO OTHER CHANGES, WILL REPORT TO DAY SHIFT RN.
[2024-08-19] MEDS ORDERED: Regadenoson 0.4 MG/5 ML SYRINGE ONE (09:14)
--- NOTE | 2024-08-19 09:27 | NUR ---
UPDATE: PT TO HC FOR FIRST PORTION OF STRESS TEST
--- NOTE | 2024-08-19 11:31 | NUR ---
UPDATE: PT RETURNED FROM IMAGING APPROX 1100. VSS.
--- NOTE | 2024-08-19 17:00 | NUR ---
SHIFT SUMMARY: PT ALERT AND ORIENTED X4, ABLE TO FOLLOW COMMANDS AND MAKE NEEDS KNOWN. COOPERATIVE WITH CARE. STRENGTH EQUAL BILATERALLY. BP AND HR STABLE. AFEBRILE. SPO2 >98% ON ROOM AIR. LUNG SOUNDS CLEAR THROUGHOUT, RESPIRATIONS EVEN AND UNLABORED. ABD DISTENDED, BOWEL SOUNDS +, DENIES NAUSEA/VOMITING. PULSES STRONG AND EQUAL THROUGHOUT. PT UNDERWENT STRESS TEST THIS SHIFT, TOLERATED WELL. PLAN FOR COLONSCOPY 08/20/24, BOWEL PREP TO START AT 1800 THIS EVENING. NO DARK/BLOODY STOOLS NOTED THIS SHIFT. PT SBA TO AND FROM BATHROOM, PUREWICK IN PLACE, CONNECTED TO LOW CONTINUOUS SUCTION. FAMILY AT BEDSIDE THIS AFTERNOON, UPDATED ON PT PLAN OF CARE. BED IN LOW, CALL LIGHT IN REACH, WILL REPORT TO ONCOMING RN.
[2024-08-19] MEDS ORDERED: Sodium, Potassium,Mag Sulfates 354 ML PO SCH (18:00)
--- NOTE | 2024-08-19 22:03 | NUR ---
ASSUMPTION OF CARE: PATIENT IS ALERT AND ORIENTED X 4, ABLE TO MAKE NEEDS KNOWN, STEADY ON HIS FEET, TOLERATING PILLS AND THIN LIQUIDS WITH NO DIFFICULTY, DOES ENDORSE NUEROPATHY. PATIENT SPO2 >94% ON RA. DENIES CHEST PAIN PRESSURE OR SOB. VSS AT START OF SHIFT. 1 X SUREPREP GIVEN BY DAY RN. NEXT DSE SCHEUDLE FOR ~0200. COLONOSOPY IN THE AM, CLEAR LIQUIDS OK WHEN SPOKE WITH DR. THOMPSON, NPO AT 0500. PATIENT COOPERATIVE AND PLEASANT. NO BM SINCE ASSUMPTION OF THIS PATIENT, DID CALL DR. DARLING NO BM SINCE ADMINISTRATION OF FIRST SUREPREP. NO ACUTE CONCERNS FROM THIS RN AT THIS TIME. [place] OF CARE CONTINUES.
[2024-08-20] VITALS (9 sets, daily range): BP systolic 98–138; BP diastolic 48–77
[2024-08-20 05:14] LABS: BASOPHILS ABSOLUTE AUTO 0.03 K/mm3 (0.00-0.23); BASOPHILS PERCENT AUTO 0 % (0-2); EOSINOPHILS ABSOLUTE AUTO 0.01 K/mm3 (0.00-0.68); EOSINOPHILS PERCENT AUTO 0 % (0-6); Hematocrit 28.9 % (37.0-53.0); Hemoglobin 9.3 g/dL (13.5-17.5); IMMATURE GRAN ABSOLUTE AUTO 0.03 K/mm3 (0.00-0.10); IMMATURE GRAN PERCENT AUTO 0 % (0-1); LYMPHOCYTES ABSOLUTE AUTO 1.43 K/mm3 (0.84-5.20); LYMPHOCYTES PERCENT AUTO 19 % (21-46); MONOCYTES ABSOLUTE AUTO 1.05 K/mm3 (0.16-1.47); MONOCYTES PERCENT AUTO 14 % (4-13); Mean Corpuscular HGB 27.6 pg (26.0-34.0); Mean Corpuscular HGB Conc 32.2 g/dL (31.5-36.5); Mean Corpuscular Volume 86 fL (80-100); Mean Platelet Volume 9.6 fL (9.1-12.4); NEUTROPHILS ABSOLUTE AUTO 5.11 K/mm3 (1.96-9.15); NEUTROPHILS PERCENT AUTO 67 % (41-73); NRBC ABSOLUTE 0.02 K/mm3 (0.00-0.02); NRBC Auto 0.3 /100 WBC (0.0-0.2); Platelet Count 190 K/mm3 (150-400); RDW Coefficient Variation 15.2 % (11.7-14.2); RDW Standard Deviation 46.6 fL (35.1-46.3); Red Blood Cell Count 3.37 M/mm3 (4.30-5.90); White Blood Cell Count 7.66 K/mm3 (4.00-11.30)
[2024-08-20 05:48] LABS: Bun/Creatinine Ratio 12.7 (12.0-20.0); Calcium, Blood 9.1 mg/dL (8.5-10.1); Creatinine, Blood 1.1 mg/dL (0.60-1.20)
--- NOTE | 2024-08-20 06:07 | NUR ---
EOS: PATIENT EARLY IN THE NIGHT BEGAN TO HAVE CLEARING BOWEL MOVEMENTS, STILL SOME FLAKED BROWN, BUT NO LONGER HAVING FORMED MOVEMENTS, HAS BEEN TOLERATING EXERTION TO BATHROOM BY SELF, NPO SINCE 0500 BEEN CLEAR LIQUID SINCE WATER ONLY SINCE START OF MY SHIFT.,DENIES CHEST PAIN PRESSURE SOB AT REST CURRENLTY SLEEPING CONTINUOUS PULSE OXIMETRY AND TELE IN PLACE. NO ACUTE CONCERNS.
[2024-08-20] MEDS ORDERED: Lactated Ringer's 1,000 ML IV SCH (12:00)
[2024-08-20] MEDS ORDERED: propofoL 40 ML IV ONE (12:57)
--- NOTE | 2024-08-20 13:21 | NUR ---
08/20/24 1321 Laine Lynn MONITOR INTACT WITH CONTINUOUS PULSE OXIMETRY, CONTINUOUS END TITAL CO2, 3-LEAD EKG AND INTERMITTENT BLOOD PRESSURE.
--- NOTE | 2024-08-20 18:03 | NUR ---
SHIFT SUMMARY: NO ACUTE CHANGES HAPPENED DURING THIS SHIFT. PT WENT FOR COLONOSCOPY THIS AFTERNOON, NO BLEEDING WAS FOUND. NO OTHER SIGNIFICANT EVENTS HAPPENED DURING THIS SHIFT. PT CALLED APPROPRIATELY AND MADE NEEDS KNOWN TO STAFF. PLAN TO POSSIBLE DC TO HOME IN THE NEXT COUPLE OF DAYS. WILL CONTINUE TO CARE FOR PT TILL END OF SHIFT.
[2024-08-21 04:19] VITALS: BP 101/60
--- NOTE | 2024-08-21 06:29 | NUR ---
EOS: PATIENT DENIES CHEST PAIN/PRESSURE DIZZINESS SOB. HAS BEEN COOPERATIVE PLEASANT. ALERT AND ORIENTED, ABLE TO MAKE NEEDS KNOWN, SYSTOLIC BLOOD PRESSURE TRENDED DOWN TO UPPER 100'S, MAP >75. PATIENT HAS BEEN SLEEPING WELL MOST OF THE NIGHT ON CPAP. SPO2 >94%. NO ACUTE CONCERNS FROM THI SNR, EXCEPT NO AM LABS. WILL INFORM DAY RN. PLAN OF CARE CONTINUES.
[2024-08-21 08:39] VITALS: BP 111/55
[2024-08-21 08:42] LABS: Hematocrit 30.4 % (37.0-53.0); Hemoglobin 9.9 g/dL (13.5-17.5); Mean Corpuscular HGB 28.2 pg (26.0-34.0); Mean Corpuscular HGB Conc 32.6 g/dL (31.5-36.5); Mean Corpuscular Volume 87 fL (80-100); Mean Platelet Volume 10.1 fL (9.1-12.4); NRBC ABSOLUTE 0.04 K/mm3 (0.00-0.02); NRBC Auto 0.5 /100 WBC (0.0-0.2); Platelet Count 224 K/mm3 (150-400); RDW Coefficient Variation 15.5 % (11.7-14.2); RDW Standard Deviation 46.5 fL (35.1-46.3); Red Blood Cell Count 3.51 M/mm3 (4.30-5.90); White Blood Cell Count 7.52 K/mm3 (4.00-11.30)
[2024-08-21 09:07] LABS: Bun/Creatinine Ratio 12.7 (12.0-20.0); Calcium, Blood 8.9 mg/dL (8.5-10.1); Creatinine, Blood 1.1 mg/dL (0.60-1.20); Potassium, Blood 3.6 mmol/L (3.5-5.5)
[2024-08-21 12:30] VITALS: BP 134/68
[2024-08-21] MEDS ORDERED: VITAMIN D350 MC3 PO (14:28)
--- NOTE | 2024-08-21 15:57 | NUR ---
DISCHARGE SUMMARY PT A&OX4 AND ANSWERS QUESTIONS APPROPRIATELY. PT SEEN BY DR SOLIZ. PT ASSESSED BY PT NAD RECOMENDED HOME W/ HOME HEALTH. PT VSS, NO COMPLAINTS OF CP/PRESSURE OR SOB. PT RECEIVED SCHEDULED MEDICAITONS. PT CLEARED TO DISCHARGE PER DR SOLIZ. ALL BELONGINGS WITH PT. IVS REMOVED. NO ACUTE EVENTS AT THIS TIME. PT DISCHARGED HOME VIA A W/C.
== END 2024-08-21 15:30 | disposition home or self-care (01) | DRG 377 ==
LOC: ER 14:36 → ERHOLD 14:37 → PCU 14:37
PROVIDERS: Emergency Medicine; Family Medicine; Internal Medicine; Nurse Practitioner Acute Care; Surgery; ADMIT Internal Medicine
PROC: 30233N1 Transfusion of Nonautologous Red Blood Cells into Peripheral Vein, Percutaneous Approach (ICD-10-PCS; 2024-08-16)
PROC: 0DJD8ZZ Inspection of Lower Intestinal Tract, Via Natural or Artificial Opening Endoscopic (ICD-10-PCS; principal; 2024-08-20 12:30)
DX: K57.31 Diverticulosis of large intestine without perforation or abscess with bleeding (principal); I21.A1 Myocardial infarction type 2; F10.239 Alcohol dependence with withdrawal, unspecified; I50.30 Unspecified diastolic (congestive) heart failure; E11.9 Type 2 diabetes mellitus without complications; I25.10 Atherosclerotic heart disease of native coronary artery without angina pectoris; I45.10 Unspecified right bundle-branch block; Z66 Do not resuscitate; E66.01 Morbid (severe) obesity due to excess calories; M10.9 Gout, unspecified; N40.0 Benign prostatic hyperplasia without lower urinary tract symptoms; E78.5 Hyperlipidemia, unspecified; D50.0 Iron deficiency anemia secondary to blood loss (chronic); G47.33 Obstructive sleep apnea (adult) (pediatric); I95.9 Hypotension, unspecified; I11.0 Hypertensive heart disease with heart failure; I34.0 Nonrheumatic mitral (valve) insufficiency; I25.2 Old myocardial infarction; Z86.73 Personal history of transient ischemic attack (TIA), and cerebral infarction without residual deficits; Z90.49 Acquired absence of other specified parts of digestive tract; Z98.890 Other specified postprocedural states; Z95.1 Presence of aortocoronary bypass graft; Z98.1 Arthrodesis status; Z87.19 Personal history of other diseases of the digestive system; Z88.0 Allergy status to penicillin; Z88.8 Allergy status to other drugs, medicaments and biological substances; Z91.041 Radiographic dye allergy status; Z79.82 Long term (current) use of aspirin; Z79.899 Other long term (current) drug therapy; Z79.84 Long term (current) use of oral hypoglycemic drugs; Z79.811 Long term (current) use of aromatase inhibitors; Z87.891 Personal history of nicotine dependence; Z68.32 Body mass index [BMI] 32.0-32.9, adult
CPT/HCPCS: 36415; 36430; 71045; 78452; 80048; 80053; 80320; 82728; 82947; 83540; 83550; 83735; 83880; 84484; 85014; 85018; 85025; 85027; 85610; 86850; 86900; 86901; 86923; 93005; 93010; 93017; 93306; 94762; 96361; 96374; 97110; 97112; 97116; 97161; 97530; 99285-25; A9270; A9500; G0378; J1750; J1940; J2470; J2704; J2785; J7030; J7050; J7120; P9016

== ENCOUNTER 2024-09-01 18:33 | Inpatient (IN) | payer OTHER ==
[~2024-09-01] VITALS: Ht 170.2 cm; Wt 93.6 kg
[~2024-09-01 18:33] MED LIST changes: +VITAMIN D350 MC3 PO
[2024-09-01 18:52] LABS: BASOPHILS ABSOLUTE AUTO 0.01 K/mm3 (0.00-0.23); BASOPHILS PERCENT AUTO 0 % (0-2); EOSINOPHILS ABSOLUTE AUTO 0.01 K/mm3 (0.00-0.68); EOSINOPHILS PERCENT AUTO 0 % (0-6); Hematocrit 22.8 % (37.0-53.0); Hemoglobin 6.9 g/dL (13.5-17.5); IMMATURE GRAN ABSOLUTE AUTO 0.03 K/mm3 (0.00-0.10); IMMATURE GRAN PERCENT AUTO 0 % (0-1); LYMPHOCYTES ABSOLUTE AUTO 1.61 K/mm3 (0.84-5.20); LYMPHOCYTES PERCENT AUTO 23 % (21-46); MONOCYTES ABSOLUTE AUTO 0.89 K/mm3 (0.16-1.47); MONOCYTES PERCENT AUTO 13 % (4-13); Mean Corpuscular HGB 29.6 pg (26.0-34.0); Mean Corpuscular HGB Conc 30.3 g/dL (31.5-36.5); Mean Corpuscular Volume 98 fL (80-100); NEUTROPHILS ABSOLUTE AUTO 4.54 K/mm3 (1.96-9.15); NEUTROPHILS PERCENT AUTO 64 % (41-73); Platelet Count 192 K/mm3 (150-400); RDW Coefficient Variation 23.3 % (11.7-14.2); RDW Standard Deviation 78.4 fL (35.1-46.3); Red Blood Cell Count 2.33 M/mm3 (4.30-5.90); White Blood Cell Count 7.09 K/mm3 (4.00-11.30)
[2024-09-01 19:12] LABS: Albumin, Blood 3.1 g/dL (3.4-5.0); Albumin/Globulin Ratio 1.3 (0.8-1.8); Bilirubin, Total 0.6 mg/dL (0.1-1.0); Bun/Creatinine Ratio 32.7 (12.0-20.0); Calcium, Blood 8.6 mg/dL (8.5-10.1); Creatinine, Blood 1.04 mg/dL (0.60-1.20); Globulin, Blood 2.4 g/dL (2.2-4.0); Potassium, Blood 4.7 mmol/L (3.5-5.5); Total Protein, Blood 5.5 g/dL (6.4-8.2)
[2024-09-01] MEDS ORDERED: NS 1,000 ML IV SCH ×2 (19:35→20:00)
[2024-09-01] MEDS ORDERED: Pantoprazole Sodium 40 MG in NS 50 ML IV SCH (20:15)
[2024-09-01] MEDS ORDERED: Mag Hydrox/AL Hydrox/Simeth 30 ML UDC PO ONE (20:45)
[2024-09-01] MEDS ORDERED: Lactated Ringer's 1,000 ML IV SCH (21:36)
[2024-09-01] MEDS ORDERED: FLU VACC TS2024-25(6MOS UP)/PF 45 MCG/0.5 ML SYRINGE IM ONE (22:00)
[2024-09-01 22:37] VITALS: BP 118/65
[2024-09-01 22:45] VITALS: BP 124/59
[2024-09-01 23:00] VITALS: BP 96/77
[2024-09-01 23:15] VITALS: BP 106/82
--- NOTE | 2024-09-01 23:30 | NUR ---
UPDATE: PT ADMITTED FROM ED THIS EVENING FOR GI BLEED. COMPLAINING OF CHEST PAIN UPON ARRIVAL TO PCU. EKG DONE. NO SIGNIFICANT CHANGES IN PT VITALS. NO S/S ACUTE DISTRESS. THIS RN DISCUSSED FINDING WITH DR. PERRY. PLAN TO DRAW TROPONIN WITH PT'S NEXT CBC. PT'S CHEST PAIN HAS DECLINED FROM 01/17 TO 2 SINCE INITIAL COMPLAINT WITHOUT INTERVENTION.
[2024-09-02] VITALS (11 sets, daily range): BP systolic 91–111; BP diastolic 44–81
[2024-09-02 02:59] LABS: Mean Corpuscular HGB Conc 30.4 g/dL (31.5-36.5); NRBC ABSOLUTE 0.03 K/mm3 (0.00-0.02); NRBC Auto 0.5 /100 WBC (0.0-0.2); Platelet Count 169 K/mm3 (150-400); RDW Coefficient Variation 27.8 % (11.7-14.2); RDW Standard Deviation 89.1 fL (35.1-46.3); White Blood Cell Count 6.57 K/mm3 (4.00-11.30)
[2024-09-02 03:00] LABS: Mean Corpuscular Volume 92 fL (80-100)
--- NOTE | 2024-09-02 03:31 | NUR ---
UPDATE: PT'S HGB WENT FROM 6.9 TO 7.0 AFTER 1 UNIT PRBC. THIS RN DISCUSSED WITH NOC RESIDENT. 1 ADDITIONAL UNIT PRBC ORDERED. RESIDENT ORDERED TO DRAW H&H 30 MIN POST TRANSFUSION AND DISCONTINUE ALL OTHER LAB DRAWS.
[2024-09-02] MEDS ORDERED: NS 500 ML IV SCH (04:45)
--- NOTE | 2024-09-02 05:36 | NUR ---
UPDATE: ASYMPTOMATIC HYPOTENTION WITH MAP 58-63 DISCUSSED WITH NOC RESIDENT. NO CHANGE IN ORDERS AT THIS TIME. PT CURRENTLY RECEIVING 1 UNIT PRBC. NO NEUROLOGICAL CHANGES NOTED. NO TELE CHANGES NOTED. PT'S SKIN IS WARM AND APPEARS TO BE PERFUSING WELL. 2+ PULSES. ABD MINIMALLY DISTENDED, NO CHANGES SINCE PREVIOUS ASSESSMENT. NO ABD PAIN TO PALPATION. HYPERACTIVE BOWEL SOUNDS, UNCHANGED FROM PREVIOUS ASSESSMENT. PT HAS NOT HAD ANY BM OR OBVIOUS SIGN OF BLEEDING SINCE ARRIVAL TO PCU THIS SHIFT.
[2024-09-02] MEDS ORDERED: DULO60 PO (06:17)
[2024-09-02] MEDS ORDERED: CLOP75 PO (06:17)
[2024-09-02] MEDS ORDERED: TEARS LUBRICANT15 ML BOTHEYES (06:19)
[2024-09-02] MEDS ORDERED: OZEMPIC1 MG/0.72 SQ (06:20)
--- NOTE | 2024-09-02 08:00 | NUR ---
[place] of care: Resting in bed with no complaints. Neuro intact except KASHIA. In NSR with stable blood pressures & oxygen saturations WNL on room air. Finishing up second unit of PRBCs then will obtain repeat H&H. NPO pending GI consult. PIV x2 with protonix gtt infusing. Will follow.
[2024-09-02 08:29] LABS: Hematocrit 25.2 % (37.0-53.0); Hemoglobin 7.9 g/dL (13.5-17.5)
[2024-09-02 08:42] LABS: Calcium, Blood 8.1 mg/dL (8.5-10.1); Creatinine, Blood 1.04 mg/dL (0.60-1.20); Potassium, Blood 3.9 mmol/L (3.5-5.5)
[2024-09-02] MEDS ORDERED: Lactated Ringer's 1,000 ML IV SCH (16:05)
--- NOTE | 2024-09-02 16:05 | NUR ---
Patient off floor for EGD.
[2024-09-02] MEDS ORDERED: Etomidate 2MG / ML 10ML Vial ONE (16:16)
--- NOTE | 2024-09-02 16:40 | NUR ---
09/02/24 Irina Motley History, Chart, Medications and Allergies reviewed before start of procedure. 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
--- NOTE | 2024-09-02 17:27 | NUR ---
Shift summary: Remains alert & oriented. Vital signs stable on room air. Just returned from his EGD which did not show any active bleed. Repeat Hgb earlier 7.9. Eating & voiding, no BM. PIV x2 in place. Will continue to monitor.
[2024-09-02] MEDS ORDERED: Polyethylene Glycol 3350 17 gm PO ONE (20:00)
[2024-09-02] MEDS ORDERED: Insulin Regular 100 UNIT/ML 10ML Vial SC SCH ×2 (21:00)
[2024-09-03 00:03] VITALS: BP 122/60
[2024-09-03] MEDS ORDERED: Melatonin 3 MG Tab PO ONE (00:40)
[2024-09-03 00:53] LABS: Stool Occult Blood Guaiac 1 Neg (Neg)
[2024-09-03 04:05] VITALS: BP 100/67
[2024-09-03 04:31] LABS: BASOPHILS ABSOLUTE AUTO 0.01 K/mm3 (0.00-0.23); BASOPHILS PERCENT AUTO 0 % (0-2); EOSINOPHILS ABSOLUTE AUTO 0.02 K/mm3 (0.00-0.68); EOSINOPHILS PERCENT AUTO 0 % (0-6); Hematocrit 25.7 % (37.0-53.0); Hemoglobin 8.1 g/dL (13.5-17.5); IMMATURE GRAN ABSOLUTE AUTO 0.03 K/mm3 (0.00-0.10); IMMATURE GRAN PERCENT AUTO 0 % (0-1); LYMPHOCYTES ABSOLUTE AUTO 1.62 K/mm3 (0.84-5.20); LYMPHOCYTES PERCENT AUTO 23 % (21-46); MONOCYTES ABSOLUTE AUTO 0.83 K/mm3 (0.16-1.47); MONOCYTES PERCENT AUTO 12 % (4-13); Mean Corpuscular HGB 28.8 pg (26.0-34.0); Mean Corpuscular HGB Conc 31.5 g/dL (31.5-36.5); Mean Corpuscular Volume 92 fL (80-100); Mean Platelet Volume 10.1 fL (9.1-12.4); NEUTROPHILS ABSOLUTE AUTO 4.47 K/mm3 (1.96-9.15); NEUTROPHILS PERCENT AUTO 64 % (41-73); Platelet Count 175 K/mm3 (150-400); RDW Standard Deviation 82.6 fL (35.1-46.3); Red Blood Cell Count 2.81 M/mm3 (4.30-5.90); White Blood Cell Count 6.98 K/mm3 (4.00-11.30)
[2024-09-03 04:46] LABS: Bun/Creatinine Ratio 21.8 (12.0-20.0); Calcium, Blood 7.7 mg/dL (8.5-10.1); Creatinine, Blood 0.97 mg/dL (0.60-1.20); Potassium, Blood 3.7 mmol/L (3.5-5.5)
[2024-09-03] MEDS ORDERED: Pantoprazole Sodium 40 MG Tab PO SCH (06:00)
--- NOTE | 2024-09-03 06:37 | NUR ---
SHIFT SUMMARY PT REMAINS A&OX4. VSS ON RA. PT WAS ABLE TO HAVE A VERY SMALL BM THROUGHOUT NIGHT THAT WAS SENT DOWN FOR [place] STOOL AND RESULTED NEGATIVE. NO ACUTE CHANGES OVERNIGHT. HGB REMAINS STABLE AT THIS TIME. NO FURTHER QUESTIONS OR CONCENRS AT THIS TIME. WILL CONTINUE WITH PLAN OF CARE AND REPORT TO ONCOMING NURSE.
[2024-09-03] MEDS ORDERED: Polyethylene Glycol 3350 17 gm PO SCH (08:00)
[2024-09-03 08:14] VITALS: BP 103/65
[2024-09-03] MEDS ORDERED: Atorvastatin 40 MG Tab PO SCH (09:00)
--- NOTE | 2024-09-03 10:34 | NUR ---
UPDATE DISCHARGE INSTRUCTIONS PROVIDED TO PT. PT EDUCATED ON CHANGES AND FOLLOW-UP. ALL QUESTIONS ANSWERED. PT AWAITING RIDE HOME
[2024-09-03 12:10] VITALS: BP 124/68
[2024-09-03] MEDS ORDERED: Melatonin 3 MG Tab PO SCH (21:00)
== END 2024-09-03 12:31 | disposition home or self-care (01) | DRG 378 ==
LOC: ER 18:33 → PCU 20:11 → ERHOLD 20:11 → PCU 22:24
PROVIDERS: Internal Medicine; Internal Medicine Gastroenterology; Physician Assistant; Student in an Organized Health Care Education/Training Program; ADMIT Internal Medicine
PROC: 30233N1 Transfusion of Nonautologous Red Blood Cells into Peripheral Vein, Percutaneous Approach (ICD-10-PCS; 2024-09-01)
PROC: 0DJ08ZZ Inspection of Upper Intestinal Tract, Via Natural or Artificial Opening Endoscopic (ICD-10-PCS; principal; 2024-09-02 12:15)
DX: K92.1 Melena (principal); D62 Acute posthemorrhagic anemia; I13.0 Hypertensive heart and chronic kidney disease with heart failure and stage 1 through stage 4 chronic kidney disease, or unspecified chronic kidney disease; I50.32 Chronic diastolic (congestive) heart failure; Z66 Do not resuscitate; I25.10 Atherosclerotic heart disease of native coronary artery without angina pectoris; I67.2 Cerebral atherosclerosis; I45.10 Unspecified right bundle-branch block; E11.42 Type 2 diabetes mellitus with diabetic polyneuropathy; N18.31 Chronic kidney disease, stage 3a; E11.22 Type 2 diabetes mellitus with diabetic chronic kidney disease; E78.2 Mixed hyperlipidemia; G47.33 Obstructive sleep apnea (adult) (pediatric); F32.9 Major depressive disorder, single episode, unspecified; Z28.21 Immunization not carried out because of patient refusal; J44.9 Chronic obstructive pulmonary disease, unspecified; N40.0 Benign prostatic hyperplasia without lower urinary tract symptoms; M10.9 Gout, unspecified; E66.01 Morbid (severe) obesity due to excess calories; Z68.32 Body mass index [BMI] 32.0-32.9, adult; H91.93 Unspecified hearing loss, bilateral; I34.0 Nonrheumatic mitral (valve) insufficiency; I25.2 Old myocardial infarction; Z95.1 Presence of aortocoronary bypass graft; Z95.5 Presence of coronary angioplasty implant and graft; Z79.82 Long term (current) use of aspirin; Z79.02 Long term (current) use of antithrombotics/antiplatelets; Z79.899 Other long term (current) drug therapy; Z88.0 Allergy status to penicillin; Z87.891 Personal history of nicotine dependence; Z88.8 Allergy status to other drugs, medicaments and biological substances; Z88.4 Allergy status to anesthetic agent; Z79.84 Long term (current) use of oral hypoglycemic drugs
CPT/HCPCS: 36415; 36430; 80048; 80053; 82272; 82947; 84484; 85014; 85018; 85025; 85027; 86850; 86900; 86901; 86923; 93005; 93010; 99285-25; A9270; J1815; J2470; J7030; J7120; P9016

== ENCOUNTER → 2024-10-01 | Outpatient (CLI) | payer OTHER ==
[~2024-10-01] MED LIST changes: +DULO60 PO; +OZEMPIC1 MG/0.72 SQ; +TEARS LUBRICANT15 ML BOTHEYES
[2024-10-04 15:26] LABS: C DIFFICILE DNA NEGATIVE (Negative)
== END | disposition home or self-care (01) ==
LOC: LAB SHORT 12:06 → LAB 12:06
PROVIDERS: Nurse Practitioner Family
DX: R19.7 Diarrhea, unspecified (principal)
CPT/HCPCS: 87493

== ENCOUNTER → 2025-05-07 | Outpatient (CLI) | payer OTHER ==
[2025-05-07 15:31] LABS: BASOPHILS ABSOLUTE AUTO 0.02 K/mm3 (0.00-0.23); BASOPHILS PERCENT AUTO 0 % (0-2); EOSINOPHILS ABSOLUTE AUTO 0.03 K/mm3 (0.00-0.68); EOSINOPHILS PERCENT AUTO 0 % (0-6); Hematocrit 47.4 % (37.0-53.0); Hemoglobin 15.0 g/dL (13.5-17.5); IMMATURE GRAN ABSOLUTE AUTO 0.02 K/mm3 (0.00-0.10); IMMATURE GRAN PERCENT AUTO 0 % (0-1); LYMPHOCYTES ABSOLUTE AUTO 1.41 K/mm3 (0.84-5.20); LYMPHOCYTES PERCENT AUTO 18 % (21-46); MONOCYTES ABSOLUTE AUTO 0.80 K/mm3 (0.16-1.47); MONOCYTES PERCENT AUTO 10 % (4-13); Mean Corpuscular HGB Conc 31.6 g/dL (31.5-36.5); Mean Corpuscular Volume 87 fL (80-100); NEUTROPHILS ABSOLUTE AUTO 5.45 K/mm3 (1.96-9.15); NEUTROPHILS PERCENT AUTO 71 % (41-73); NRBC ABSOLUTE 0.00 K/mm3 (0.00-0.02); NRBC Auto 0.0 /100 WBC (0.0-0.2); Platelet Count 178 K/mm3 (150-400); RDW Coefficient Variation 26.4 % (11.7-14.2); RDW Standard Deviation 81.2 fL (35.1-46.3)
[2025-05-07 16:08] LABS: Ferritin, Serum 57.0 ng/mL (26-388); Total Iron Binding Capacity 329.0 ug/dL (250-450)
== END ==
LOC: LAB SHORT 13:29 → LAB 13:29
PROVIDERS: Internal Medicine Hematology & Oncology
DX: E61.1 Iron deficiency (principal)
CPT/HCPCS: 82728; 83540; 83550; 85025